=== PATIENT | male | born 1970 | race Caucasian/White ===

== ENCOUNTER 2016-10-05 12:00 | Inpatient (IN) | payer OTHER ==
[~2016-10-05] VITALS: Ht 177.8 cm; Wt 72.1 kg
[~2016-10-05 12:00] MED LIST: ENDOCET 325 MG-1 TAB PO; MELOXICAM7.5 M1; MOTRIN800 MG PO; NIACIN500 M1 PO; OXYCONTIN20 M1; PERCOCET 325 MG1 TA2 PO; TESTOSTERO TOP
--- NOTE | 2016-10-05 12:15 | NUR ---
Informed waiting has been performed.
--- NOTE | 2016-10-05 12:15 | NUR ---
TRIAGE: PT TO C/C SUICIDAL IDEATION AND TOOK "AROUND 30 OXYS" TODAY. STATES PILLS WERE 15 MG TABLETS. TOOK "A LITTLE OVER AN HOUR NOW". PILLS WERE PRESCRIBED TO HIM. DENIES ETOH OR OTHER SUBSTANCE USE/ABUSE. DENIES HI. DENIES ANY PSYCH HX. WHEN ASKED WHY HE WANTED TO COMMIT SUICIDE RESPONDS "I DON'T KNOW, I REALLY DON'T KNOW".
--- NOTE | 2016-10-05 12:20 | ED PSYCHIATRIC COMPLAINT ---
See Addendum History of Present Illness General Chief Complaint: Psychiatric Related Complaint Stated Complaint: "I TOOK 40 OXYS TODAY" X 1HR +SI Source: patient Exam Limitations: no limitations Vital Signs & Intake/Output Vital Signs & Intake/Output Vital Signs Date Time Temp Pulse Resp B/P Pulse O2 O2 Flow FiO2 Ox Delivery Rate 10/06 0519 98.1 88 18 151/83 97 Room Air 10/05 2113 97.8 98 16 170/108 98 Room Air 10/05 1824 100 16 148/92 97 Room Air 10/05 1355 Room Air 10/05 1348 97.8 108 18 145/83 96 Room Air 10/05 1211 96.5 102 20 164/100 97 Room Air ED Intake and Output 10/06 0000 10/05 1200 Intake Total Output Total Balance Patient 181 lb Weight Allergies Coded Allergies: NO KNOWN ALLERGIES (10/05/16) Reconcile Medications Meloxicam 7.5 MG TABLET 1 TAB PO DAILY INFLAMMATION (Reported) Oxycodone Cr (OxyContin) 20 MG TAB.ER.12H 1 TAB PO BID PAIN (Reported) OXYCODONE HCL/ACETAMINOPHEN (Percocet 5-325 MG Tablet) 325 MG/5 MG TAB 1 TAB PO Q4-6 PRN PRN PAIN Testosterone 10 MG (2%) 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 STATES PILLS WERE 15 MG TABLETS. TOOK "A LITTLE OVER AN HOUR NOW". PILLS WERE PRESCRIBED TO HIM. DENIES ETOH OR OTHER SUBSTANCE USE/ABUSE. DENIES HI. DENIES ANY PSYCH HX. WHEN ASKED WHY HE WANTED TO COMMIT SUICIDE RESPONDS "I DON'T KNOW, I REALLY DON'T KNOW". Triage Nurses Notes Reviewed? yes Onset: Abrupt Duration: hour(s): (1) Timing: single episode today Severity: severe Associated Symptoms: anxiety HPI: 45 y/o male who presents 1 hr after taking combination of 20mg long acting and 15 mg short acting oxycodone tabs. Total pills were 30. Patient is chronically on them for chronic back pain. Patient reports he did this as a ? suicide attempt, admits to depression. Denies any other ingestion. She noticed to being depressed but doesn't want to talk about it. He has never done anything like this before. Medications are obtained legally from Dr. Plaza pain management. Denies any alcohol ingestion or illicit drug use. (MARYLOU GONZALES MD) Past History Travel History Traveled to [place] past 21 day No Medical History Any Pertinent Medical History? 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 No (MARYLOU GONZALES MD) Review of Systems Review of Systems Constitutional: Denies: chills, fever. EENTM: Reports: no symptoms. Respiratory: Reports: no symptoms. Cardiovascular: Denies: chest pain. GI: Reports: no symptoms. Genitourinary: Reports: no symptoms. Musculoskeletal: Reports: no symptoms. Skin: Reports: no symptoms. Neurological/Psychological: Reports: anxiety, depressed, emotional problems. Hematologic/Endocrine: Reports: no symptoms. Immunologic/Allergic: Denies: splenectomy. All Other Systems: Reviewed and Negative (MARYLOU GONZALES MD) Physical Exam Physical Exam General Appearance: well developed/nourished, alert, awake, anxious, moderate distress Head: atraumatic Eyes: Bilateral: PERRL, EOMI. Ears, Nose, Throat: normal pharynx, normal ENT inspection, hearing grossly normal Neck: normal inspection, supple Respiratory: normal breath sounds Cardiovascular: regular rate/rhythm Gastrointestinal: soft, non-tender Extremities: normal range of motion Neurological/Psychiatric: no motor/sensory deficits, awake, alert, anxious Appearance/Memory/Insight: disheveled, impaired insight Behavoir/Eye Contact/Speech: avoids eye contact, good eye contact Thoughts/Hallucinations: no apparent hallucination Skin: intact, normal color, warm/dry SAD PERSONS Done? unobtained due to conditi (MARYLOU GONZALES MD) Progress Differential Diagnosis: OPIATE OVERDOSE, BENZO ABUSE, STIMULANT ABUSE, DEPRESSION, ANXIETY, SI Plan of Care: Orders Procedure Date/time Status Regular Diet 10/06 B Active Continuous Observation Monitor 10/06 0400 Active Continuous Observation Monitor 10/06 0000 Active ED CRISIS PSYCH CONSULT 10/05 1324 Active EKG 10/05 1245 Active Continuous Observation Monitor 10/05 1213 Active URINE DRUG SCREEN FOR ER ONLY 10/05 1205 Complete ACETOMINOPHEN 10/05 1205 Complete SALICYLATE 10/05 1205 Complete ETHANOL 10/05 1205 Complete COMPREHENSIVE METABOLIC PANEL 10/05 1205 Complete CBC WITHOUT DIFFERENTIAL 10/05 1205 Complete Laboratory Tests 10/05/16 1520: Urine Opiates Screen 1650.00, Methadone Screen < 40, Barbiturate Screen < 60, Ur Phencyclidine Scrn < 6.00, Amphetamines Screen 341, U Benzodiazepines Scrn < 85, Urine Cocaine Screen < 50, Urine Cannabis Screen < 5.00 10/05/16 1232: Anion Gap 13, Estimated GFR > 60, BUN/Creatinine Ratio 18.0, Glucose 203 H, Calcium 9.9, Total Bilirubin 1.7 H, AST 43, ALT 38, Alkaline Phosphatase 42, Total Protein 7.5, Albumin 4.7, Globulin 2.8, Albumin/Globulin Ratio 1.7, CBC w Diff NO MAN DIFF REQ, RBC 5.61, MCV 91.3, MCH 30.8, RDW 12.9, MPV 8.6, Gran % 67.6, Lymphocytes % 23.9, Monocytes % 5.9, Eosinophils % 2.3, Basophils % 0.3, Absolute Granulocytes 4.4, Absolute Lymphocytes 1.5, Absolute Monocytes 0.4, Absolute Eosinophils 0.2, Absolute Basophils 0, PUBS MCHC 33.8, Salicylates < 1.0, Acetaminophen < 10.0 L, Serum Alcohol < 10.0 CRISIS CONSULT, SITTER, ASPIRIN, TYLENOL LEVEL. EKG, IV FLUIDS. 7 pm per crisis not currently suicidal but will hold overnight for reevaluation on PEC. (JANET RPOCTOR,MARYLOU) Initial ED EKG: sinus tachycardia Rhythm Strip: sinus tachycardia Hand-Off Endorsed To: CHRIS MACEDO MD Endorsed Time: 1913 Pending: consult (CRISIS REEVALUTAION) (MARYLOU GONZALES MD) Hand-Off Endorsed To: KELBY RIVERA MD Endorsed Time: 0700 Pending: consult (CHRIS MACEDO MD) Hand-Off Endorsed To: MIKE FRANK DO Endorsed Time: 0700 Pending: consult (crisis re-eval) (MIGUEL PROCTOR,KELBY) Departure Departure Disposition: STILL A PATIENT Condition: Stable Clinical Impression Primary Impression: Overdose Referrals: HEMA PROCTOR,MALCOLM Gore Departure Forms: Customer Survey General Discharge Information (JANET PROCTOR,MARYLOU) Departure Comments 10/06/16 7 AM Patient signed out to me by Miguel. He is pending reevaluiation by Crisis. (MIKE FRANK DO)
--- NOTE | 2016-10-05 12:25 | NUR ---
PT TO ROOM 7, CALM AND COOPERATIVE. PT REPORTS THAT HE TOOK 30 OXUCODONE PILLS. WHEN ASKED WHY, PT REPLIED "I DON'T KNOW". PT REPORTS BACK PAIN WITH HISTORY OF SCOLIOSIS AND ARTHRITIS. PT STATED "I NEED AN MRI ON MY BACK". PT ALSO STATED THAT HE "GETS HIS PILLS FROM A LEGAL SOURCE".
--- NOTE | 2016-10-05 12:32 | NUR ---
SECUSITY AT BEDSIDE FOR WANDING ANF PT CHANGED INTO BLUE SCRUBS
--- NOTE | 2016-10-05 12:35 | NUR ---
BLOOD DRAWN AND SENT TO LAB BY THIS [facility]. SST/LAV
--- NOTE | 2016-10-05 12:42 | NUR ---
MED STUDENT AT BEDSIDE FOR EVAL
[2016-10-05 12:43] LABS: ABSOLUTE BASOPHIL COUNT 0 /CUMM (0.0-0.2); ABSOLUTE EOSINOPHIL COUNT 0.2 /CUMM (0.0-0.7); ABSOLUTE GRANULOCYTE CT 4.4 /CUMM (1.4-6.5); ABSOLUTE LYMPH COUNT 1.5 /CUMM (1.2-3.4); ABSOLUTE MONOCYTE COUNT 0.4 /CUMM (0.10-0.60); BASOPHIL % 0.3 % (0.0-2.0); EOSINOPHIL % 2.3 % (0-5); GRANULOCYTE % 67.6 % (42.2-75.2); HEMATOCRIT 51.2 % (42-52); MEAN CORPUSCULAR HGB 30.8 PG (27.0-31.0); MEAN CORPUSCULAR HGB CONC 33.8 G/DL (33.0-37.0); MEAN CORPUSCULAR VOLUME 91.3 FL (80.0-94.0); MEAN PLATELET VOLUME 8.6 FL (7.4-10.4); PLATELET COUNT 201 /CUMM (130-400); RBC DISTRIBUTION WIDTH 12.9 % (11.5-14.5); RED BLOOD CELL CT 5.61 /CUMM (4.70-6.10); WHITE BLOOD CELL COUNT 6.5 /CUMM (4.8-10.8)
--- NOTE | 2016-10-05 13:05 | NUR ---
DR GONZALES AND MED STUDENT AT BEDSIDE
--- NOTE | 2016-10-05 13:54 | NUR ---
IV ESTABLISHED IN LEFT A/C, #20, 1 LITER OF NS RUNNING
--- NOTE | 2016-10-05 14:30 | NUR ---
LITER OF NS FINISHED INFUSING. PT REMAINS CALM. PT ADVISED THAT WE STILL NEED TO OBTAIN A URINE SAMPLE FROM HIM.
--- NOTE | 2016-10-05 15:15 | NUR ---
PT AMBULATORY TO RESTROOM WITH STEADY GAIT. PT ABLE TO GIVE URINE SAMPLE AT THIS TIME.
--- NOTE | 2016-10-05 15:23 | NUR ---
URINE TRIO SENT TO LAB
--- NOTE | 2016-10-05 16:34 | ED PSY CRISIS COLLATERAL NOTE ---
See Addendum Collateral Note Collateral Note Family/Inform/Xin Contacts: Crisis spoke by phone with the pts Amber Alexander ([phone]) who stated she is in the process of leaving the pt and was packing items earlier today. The stated she is moving out with their 2 children (ages 11 and 8) during the upcoming week and the pt does not want the separation. Pts reported the pt approached her and stated I have to go to [place], I took a bunch of pills. Mrs. Alexander stated the pt did not tell her what pills or how many. Mrs. Alexander stated her brother was at their apartment and the brother brought the pt to [place]. Mrs. Alexander stated she is unsure of the intent of the pt taking the medication. Mrs. Alexander stated the pt sees a neurologist and has a long hx of ADHD, Anxiety and Depression. Mrs. Alexander stated the pt has not worked much over past year since he was laid off. Mrs. Alexander stated they have no income, she is recovering from Cancer and they are 2 months behind with rent. Mrs. Alexander stated they lost their home 4 years ago due to financial issues. Mrs. Alexander stated this is not the couples first time . Mrs. Alexander stated the pt is not always rational. Three days ago when his car broke down and the wrong part arrived the pt kicked the part around stating I cant do it, I give up, I need to go to the hospital. Mrs. Alexander stated she is unsure if the pt is suicidal. Mrs. Alexander stated that 10 yrs ago the pt claimed he overdosed on antibiotics, she is unsure if actually did took an overdose. Mrs. Alexander is not aware of any past psychiatric hosptializations. Mrs. Alexander stated the pt has 70 bottles of vitamins throughout the house. Mrs. Alexander stated the pt avoids problems and at times has odd behavior. Mrs. Alexander stated that 1 month ago the pt ate 12 ice cream cones in a row at home. The pt will hide food so know one else will eat it. Mrs. Alexander stated despite their financial issues the pt recently smoked 3 packs of cigarettes in half a day and would light a new cigarette without finishing his current cigarette. Mrs. Alexander stated the pt has weird body movements including rigid and jerky motions. Mrs. Alexander stated the pt baseline fidgety and cannot sit still. Mrs. Alexander stated the pt is prescribed Wellbutrin, Valium, Oxycontin and Oxycodone, meloxicam ( is unsure of the correct spelling) and hormone cream she believes may be testerone. Crisis spoke by phone with the pts Amber Alexander ([phone]) who stated she is in the process of leaving the pt and was packing items earlier today. The stated she is moving out with their 2 children (ages 11 and 8) during the upcoming week and the pt does not want the separation. Pts reported the pt approached her and stated I have to go to [place], I took a bunch of pills. Mrs. Alexander stated the pt did not tell her what pills or how many. Mrs. Alexander stated her brother was at their apartment and the brother brought the pt to [place]. Mrs. Alexander stated she is unsure of the intent of the pt taking the medication. Mrs. Alexander stated the pt sees a neurologist and has a long hx of ADHD, Anxiety and Depression. Mrs. Alexander stated the pt has not worked much over past year since he was laid off. Mrs. Alexander stated they have no income, she is recovering from Cancer and they are 2 months behind with rent. Mrs. Alexander stated they lost their home 4 years ago due to financial issues. Mrs. Alexander stated this is not the couples first time . Mrs. Alexander stated the pt is not always rational. Three days ago when his car broke down and the wrong part arrived the pt kicked the part around stating I cant do it, I give up, I need to go to the hospital. Mrs. Alexander stated she is unsure if the pt is suicidal. Mrs. Alexander stated that 10 yrs ago the pt claimed he overdosed on antibiotics, she is unsure if actually did took an overdose. Mrs. Alexander is not aware of any past psychiatric hosptializations. Mrs. Alexander stated the pt has 70 bottles of vitamins throughout the house. Mrs. Alexander stated the pt avoids problems and at times has odd behavior. Mrs. Alexander stated that 1 month ago the pt ate 12 ice cream cones in a row at home. The pt will hide food so know one else will eat it. Mrs. Alexander stated despite their financial issues the pt recently smoked 3 packs of cigarettes in half a day and would light a new cigarette without finishing his current cigarette. Mrs. Alexander stated the pt has weird body movements including rigid and jerky motions. Mrs. Alexander stated the pt baseline fidgety and cannot sit still. Mrs. Alexander stated the pt is prescribed Wellbutrin, Valium, Oxycontin and Oxycodone, meloxicam ( is unsure of the correct spelling) and hormone cream she believes may be testerone. Mrs. Alexander stated she believes the pt will be able to stay with his mother once they lose their apartment.
--- NOTE | 2016-10-05 17:03 | NUR ---
CRISIS SW AT BEDSIDE FOR EVAL
--- NOTE | 2016-10-05 17:43 | NUR ---
Crisis consultation completed. Evaluation reviewed with on-call psychiatrist Dr. Castorena and with attending physician Dr. Wiley. Patient will be held over-night for further observation.
--- NOTE | 2016-10-05 17:45 | ED PSYCH CRISIS CONSULTATION ---
See Addendum Crisis Consult Basic Assessment Date of Consult: 10/05/16 Responsible Person/Accompanied By: Brought in by brother in law Insurance Authorization: Insurance #1: Insurance name: [employer] Phone number: Policy number: [id number] Group number: [id number] Authorization number: ED Provider: Patient's ED Provider: JANET PROCTOR,MARYLOU Primary Care Physician: Patient's PCP: ANTONIO PROCTOR,TOMÁS Nelson PCP's Current Psychiatrist: No current psychiatrist - pain medications prescribed by Omar Plaza MD Chief Complaint: Psychiatric Related Complaint Patient's Quote: "I had a sharp pain...looking back I dont think it was 30 pills I took" Present Illness: Patient is a 45 year old male who was brought in to [facility] emergency department by his brother in-law due to concern he may have consumed an overdose of his prescription medication. Patient is and has two children ages 8 and 11. Per attending physician report, patient stated he took 30 pills in an unspecified combination of 20mg long acting / 15 mg short acting oxycodone tablets which he is prescribed by Dr. Omar Plaza MD . Collateral information obtained from patients *see report written by Omar Rust. reports she is from patient and that they will be moving out of their home shortly due to nonpayment of rent. There are financial stressors per report and pt. 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 has had some odd behaviors such as binge eating, compulsive smoking of cigarettes, and abnormal movements. Per , pt. has historical diagnoses of ADHD, anxiety, and depression. Pt.s reports pt. may have overdosed on antibiotics over 10 years ago but is unclear. Patient presents anxious / dysphoric with flat affect. Some dystonia observed with abnormal movements. Patient was first laying ridigly in a hyper- extended position and then sitting up w/ tensed muscles. Patient denies suicidal ideation currently and denies intent or plan. Patient stated "I don't want to commit suicide." Patient denies any homicidal ideation or intent ot harm others. Patient denies audiovisual hallucinations and there is no indication of thought disorder. Patient is denying his consumption of pills was an attempt to commit suicide. This account underwriter informed patient his toxicology screen did not return a significant result for opioid level. Patient states "looking back, I don't think it was 30 pills....I think it was in the ~20 range." Patient asserts he took the medication because he was experiencing a "sharp pain" in his side. Patient speech was at times pressured with confusing statements such as "my spine is like a microphone...it's a spook....it's like spiderwebs through your body." Patient discussed several concerns regarding his health and requested further medical evaluation of his pain management as he is concerned about how he is metabolizing his medication. Patient also requested assistance of a "state worker" - when asked to elaborate, he indicated he would like assistance with finding housing and with financial benefits as he will soon need to move out his home and is unemployed. Patient does not have Patient did not reply to scaling questions ( ex. - how high is depression on a scale of 1-10 ) but did report significant levels of anxiety, depression, and perceived pain. Patient's Address: [address] [place] [address] Other Phone Number: Who Do You Live With? 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 #60 (Reported) Entered as Reported by SABINE PARIKH on 08/09/141805 Last Taken: At an unknown date and time Scheduled PRN Medications OXYCODONE HCL/ACETAMINOPHEN (Percocet 5-325 MG Tablet) 325 MG/5 MG TAB 1 TAB PO Q4-6 PRN PRN PAIN #15 TAB Prescribed by OMAR EID PA-C on 08/09/14 Last Taken: 10/05/16 Laboratory Results: Laboratory Tests 10/05/16 1520: Urine Opiates Screen 1650.00, Methadone Screen < 40, Barbiturate Screen < 60, Ur Phencyclidine Scrn < 6.00, Amphetamines Screen 341, U Benzodiazepines Scrn < 85, Urine Cocaine Screen < 50, Urine Cannabis Screen < 5.00 10/05/16 1232: Anion Gap 13, Estimated GFR > 60, BUN/Creatinine Ratio 18.0, Glucose 203 H, Calcium 9.9, Total Bilirubin 1.7 H, AST 43, ALT 38, Alkaline Phosphatase 42, Total Protein 7.5, Albumin 4.7, Globulin 2.8, Albumin/Globulin Ratio 1.7, CBC w Diff NO MAN DIFF REQ, RBC 5.61, MCV 91.3, MCH 30.8, RDW 12.9, MPV 8.6, Gran % 67.6, Lymphocytes % 23.9, Monocytes % 5.9, Eosinophils % 2.3, Basophils % 0.3, Absolute Granulocytes 4.4, Absolute Lymphocytes 1.5, Absolute Monocytes 0.4, Absolute Eosinophils 0.2, Absolute Basophils 0, PUBS MCHC 33.8, Salicylates < 1.0, Acetaminophen < 10.0 L, Serum Alcohol < 10.0 Past History Past Medical History Neurological: NONE EENT: NONE Cardiovascular: HOLE IN HEART SLIGHT LEAK IN VALVE Respiratory: NONE Gastrointestinal: NONE Hepatic: NONE Renal: NONE Musculoskeletal: SCOLIOSIS RA Psychiatric: NONE Endocrine: NONE Blood Disorders: NONE Cancer(s): NONE PASSENGER RELATIONS REPRESENTATIVE/Reproductive: NONE Past Surgical History Surgical History: non-contributory Psychosocial History Strengths/Capabilities: Patient is knowledgable about pain management and is engaged in his own healthcare. Patient is motivated to return to work. 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 Physical Limitations (Interventions): Chronic back issues Psychiatric Treatment History Psych Treatment Psychiatric Treatment No Inpatient Treatment No (Patient denies) Outpatient Treatment Yes (Psychotropic rx by PCP) Location of Treatment - Reason for Treatment - Dates of Treatment - Response to Treatment - Diagnosis by History: ADHD, Anxiety, Depression Substance Use/Abuse History Drug Use/Abuse Substances Used/Abused No (Patient denies ) First Use - Last Used - How much used/taken - How often - For how long - Route of use - Substance Abuse Treatment Substance Abuse Treatment Past Substance Abuse [place] No (Patient denies) Inpatient Treatment No Outpatient Treatment No Location of Treatment - Reason for Treatment - Dates of Treatment - Response to Treatment - Comments: Patient denies past or current substance use asserting his commercial drivers' license ([employer]) has strict drug testing protocols. Current Mental Status Mental Status Orientation: Person, Place, Situation Affect: Anxious, Flat Speech: Pressured Neuro-vegetative: Anhedonia, Appetite Increased, Energy Increased, Sleep Disturbance Appearance Appearance- Dress/Hygiene: Patient is dressed in hospital attire with no remarkable features. Behaviors Thought Process: WNL Thought Content: WNL Memory: WNL Insight: Poor SI/HI Risk Assessment Past Suicidal Ideation/Attempts Yes (Past SI/possible attempt) Current Suicidal Ideation/Att No (Patient denies) Past Homicidal Ideation/Att: No Current Homicidal Ideation/Attempts No Degree of Intent: None Gravely Disabled: Lack of Insight Risk Factors: chronic/serious med cond., high anxiety/distress, history of suicide atmpts, male, limited support Lethality Ratin PTSD Checklist PTSD Done? patient declined ED Management Sitter: Yes Restraints: No DSM5/PS Stressors/Medical Prob Diagnosis' (DSM 5, Stressors, Medical): F32.9 Unspecified Depressive Disorder F41.9 Unspecified Anxiety Disorder Rule - out for F90.2 Attention-deficit/hyperactivity disorder, Combined presentation F11.20 Opioid Use Disorder Current GAF: 35 Comments: Chronic pain Financial stressors Relationship distress / imminent separation from spouse Concern of housing Unemployed Departure Disposition Psych Medical Clearance Date: 10/05/16 Medically Cleared at: 1700 Time Started: 1700 Time Ended: 1800 Psychiatrist Consulted: Srinivasan Castorena MD, PhD Date Disposition Established: 10/05/16 Time Disposition Established: 1800 Plan for Disposition - Modality: Hold over-night for reassessment Rationale for Disposition: Crisis consulation reviewed with on-call psychiatrist Dr. Castorena. Patient to be held over-night for further observation and reassessment in the morning. Patient 's toxicology screening is inconsistent with self-report of overdosing on prescription medication. It is unclear if patient attempted suicide as pt. reported in triage and then contradicted during crisis evaluation. Pt's mental status is not stable as he presents anxious with abnormal movements/speech. If pt. is calm / stable in the morning and it is firmly established there was no intent to overdose, pt. may be appropriate for discharge with a referral to an outpatient psychiatry clinic. Referrals ANTONIO PROCTOR,TOMÁS Nelson (PCP/Family)
--- NOTE | 2016-10-05 19:10 | NUR ---
PT MOVED TO ROOM 15, HE WILL BE HELDOVER UNTIL MORNING. PT AMBULATORY WITH STEADY GAIT. PT CALM AND COOPERATIVE. SITTER AT DOOR FOR SAFETY.
--- NOTE | 2016-10-05 21:12 | NUR ---
PT AMBULATORY FROM ROOM 15, STAING HE "NEEDED TO STRETCH HIS LEGS". PT WAS ADVISED THAT HE NEEDED TO STAY WITHIN BH AREA. LAY BROTHER NEARBY. TWO SITTERS PRESENT FOR SAFETY. PT CALM AND COOPERATIVE WITH REDIRECTION AND VITALS.
--- NOTE | 2016-10-05 23:39 | NUR ---
REPORT RECIEVED BY ANNA RODRIGUEZ IN PLACE FOR SAFETY, RR NOTED. WILL CTM.
--- NOTE | 2016-10-06 02:39 | NUR ---
PT SLEEPING AT THIS TIME. REGULAR RESPIRATIONS NOTED, NAD. SITTER IN PLACE FOR SAFETY, WILL CTM.
--- NOTE | 2016-10-06 04:29 | NUR ---
PT CONTINUES TO SLEEP AT THIS TIME, NAD, SITTER IN PLACE
--- NOTE | 2016-10-06 06:39 | NUR ---
PT REMAINS ASLEEP AT THIS TIME, RR NOTED. NAD. SITTER REMAINS IN PLACE FOR SAFETY.
--- NOTE | 2016-10-06 07:30 | NUR ---
ASSUMED CARE, AWAKE, EATING BREAKFAST. SITTER IN ATTENDANCE.
--- NOTE | 2016-10-06 11:02 | NUR ---
PT WANTS TO LEAVE, STATES, "THERE IS NOTHING WRONG WITH ME".
--- NOTE | 2016-10-06 11:44 | IP CRISIS DIAG ASSESS PSYCH ---
See Addendum Diagnostic Assessment Basic Assessment Insurance Authorization: Insurance #1: Insurance name: [employer] Phone number: [phone] Health Link Policy number: [id number] Group number: [id number] Authorization number: pending Clinical left on Amber[employer] voice mail [phone]. Awaiting call back to finalize Auth. Primary Care Physician: Patient's PCP: ANTONIO PROCTOR,TOMÁS Nelson PCP's Patient's Quote: "I had a sharp pain...looking back I dont think it was 30 pills I took" Present Illness: Patient is a 45 year old male who was brought in to [facility] emergency department by his brother in-law due to concern he may have consumed an overdose of his prescription medication. Patient is and has two children ages 8 and 11. Per attending physician report, patient stated he took 30 pills in an unspecified combination of 20mg long acting / 15 mg short acting oxycodone tablets which he is prescribed by Dr. Omar Plaza MD . Collateral information obtained from patients *see report written by Omar Rust. reports she is from patient and that they will be moving out of their home shortly due to nonpayment of rent. There are financial stressors per report and pt. 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 has had some odd behaviors such as binge eating, compulsive smoking of cigarettes, and abnormal movements. Per , pt. has historical diagnoses of ADHD, anxiety, and depression. Pt.s reports pt. may have overdosed on antibiotics over 10 years ago but is unclear. Patient presents anxious / dysphoric with flat affect. Some dystonia observed with abnormal movements. Patient was first laying ridigly in a hyper- extended position and then sitting up w/ tensed muscles. Patient denies suicidal ideation currently and denies intent or plan. Patient stated "I don't want to commit suicide." Patient denies any homicidal ideation or intent ot harm others. Patient denies audiovisual hallucinations and there is no indication of thought disorder. Patient is denying his consumption of pills was an attempt to commit suicide. This short story writer informed patient his toxicology screen did not return a significant result for opioid level. Patient states "looking back, I don't think it was 30 pills....I think it was in the ~20 range." Patient asserts he took the medication because he was experiencing a "sharp pain" in his side. Patient speech was at times pressured with confusing statements such as "my spine is like a microphone...it's a spook....it's like spiderwebs through your body." Patient discussed several concerns regarding his health and requested further medical evaluation of his pain management as he is concerned about how he is metabolizing his medication. Patient also requested assistance of a "state worker" - when asked to elaborate, he indicated he would like assistance with finding housing and with financial benefits as he will soon need to move out his home and is unemployed. Patient does not have Patient did not reply to scaling questions ( ex. - how high is depression on a scale of 1-10 ) but did report significant levels of anxiety, depression, and perceived pain. Crisis consulation reviewed with on-call psychiatrist Dr. Castorena. Patient to be held over-night for further observation and reassessment in the morning. Patient 's toxicology screening is inconsistent with self-report of overdosing on prescription medication. It is unclear if patient attempted suicide as pt. reported in triage and then contradicted during crisis evaluation. Pt's mental status is not stable as he presents anxious with abnormal movements/speech. If pt. is calm / stable in the morning and it is firmly established there was no intent to overdose, pt. may be appropriate for discharge with a referral to an outpatient psychiatry clinic. [employer]> 10/05/16 Crisis spoke by phone with the pts Amber Alexander ([phone]) who stated she is in the process of leaving the pt and was packing items earlier today. The stated she is moving out with their 2 children (ages 11 and 8) during the upcoming week and the pt does not want the separation. Pts reported the pt approached her and stated I have to go to [place], I took a bunch of pills. Mrs. Alexander stated the pt did not tell her what pills or how many. Mrs. Alexander stated her brother was at their apartment and the brother brought the pt to [place]. Mrs. Alexander stated she is unsure of the intent of the pt taking the medication. Mrs. Alexander stated the pt sees a neurologist and has a long hx of ADHD, Anxiety and Depression. Mrs. Alexander stated the pt has not worked much over past year since he was laid off. Mrs. Alexander stated they have no income, she is recovering from Cancer and they are 2 months behind with rent. Mrs. Alexander stated they lost their home 4 years ago due to financial issues. Mrs. Alexander stated this is not the couples first time . Mrs. Alexander stated the pt is not always rational. Three days ago when his car broke down and the wrong part arrived the pt kicked the part around stating I cant do it, I give up, I need to go to the hospital. Mrs. Alexander stated she is unsure if the pt is suicidal. Mrs. Alexander stated that 10 yrs ago the pt claimed he overdosed on antibiotics, she is unsure if actually did took an overdose. Mrs. Alexander is not aware of any past psychiatric hosptializations. Mrs. Alexander stated the pt has 70 bottles of vitamins throughout the house. Mrs. Alexander stated the pt avoids problems and at times has odd behavior. Mrs. Alexander stated that 1 month ago the pt ate 12 ice cream cones in a row at home. The pt will hide food so know one else will eat it. Mrs. Alexander stated despite their financial issues the pt recently smoked 3 packs of cigarettes in half a day and would light a new cigarette without finishing his current cigarette. Mrs. Alexander stated the pt has weird body movements including rigid and jerky motions. Mrs. Alexander stated the pt baseline fidgety and cannot sit still. Mrs. Alexander stated the pt is prescribed Wellbutrin, Valium, Oxycontin and Oxycodone, meloxicam ( is unsure of the correct spelling) and hormone cream she believes may be testerone. Crisis spoke by phone with the pts Amber Alexander ([phone]) who stated she is in the process of leaving the pt and was packing items earlier today. The stated she is moving out with their 2 children (ages 11 and 8) during the upcoming week and the pt does not want the separation. Pts reported the pt approached her and stated I have to go to [place], I took a bunch of pills. Mrs. Alexander stated the pt did not tell her what pills or how many. Mrs. Alexander stated her brother was at their apartment and the brother brought the pt to [place]. Mrs. Alexander stated she is unsure of the intent of the pt taking the medication. Mrs. Alexander stated the pt sees a neurologist and has a long hx of ADHD, Anxiety and Depression. Mrs. Alexander stated the pt has not worked much over past year since he was laid off. Mrs. Alexander stated they have no income, she is recovering from Cancer and they are 2 months behind with rent. Mrs. Alexander stated they lost their home 4 years ago due to financial issues. Mrs. Alexander stated this is not the couples first time . Mrs. Alexander stated the pt is not always rational. Three days ago when his car broke down and the wrong part arrived the pt kicked the part around stating I cant do it, I give up, I need to go to the hospital. Mrs. Alexander stated she is unsure if the pt is suicidal. Mrs. Alexander stated that 10 yrs ago the pt claimed he overdosed on antibiotics, she is unsure if actually did took an overdose. Mrs. Alexander is not aware of any past psychiatric hosptializations. Mrs. Alexander stated the pt has 70 bottles of vitamins throughout the house. Mrs. Alexander stated the pt avoids problems and at times has odd behavior. Mrs. Alexander stated that 1 month ago the pt ate 12 ice cream cones in a row at home. The pt will hide food so know one else will eat it. Mrs. Alexander stated despite their financial issues the pt recently smoked 3 packs of cigarettes in half a day and would light a new cigarette without finishing his current cigarette. Mrs. Alexander stated the pt has weird body movements including rigid and jerky motions. Mrs. Alexander stated the pt baseline fidgety and cannot sit still. Mrs. Alexander stated the pt is prescribed Wellbutrin, Valium, Oxycontin and Oxycodone, meloxicam ( is unsure of the correct spelling) and hormone cream she believes may be testerone. Mrs. Alexander stated she believes the pt will be able to stay with his mother once they lose their apartment. [facility] [employer]LL[employer]/HUMINT SPECIALIST> 10/05/16 Crisis re-evaluated pt this morning. Pt continues to deny SI and requests an out pt referral and discharge. Case was reviewed with Dr. Swain and he will make recommendations later this morning. SILVIA KAYE [facility]> 10/06/16 Pt's story has changed several times. it is not clear if he made a suicide attempt or not. Pt has no protective factors and does not have a safe dispo plan. Dr Tony recommends pt be admitted to [facility]. Pt refuses to be admitted voluntarily, so pt has been placed on a PEC. Pt refused to participate in admission process, so diagnostic eval was limited and many questions were unable to be answered. SILVIA KAYE [facility]> 10/06/16 Patient's Address: [address] [place] [address] Other Phone Number: Who Do You Live With? Family Primary Language? Gabonese Family/Informants Interviewed: - Amber Alexander (see collateral note) Allergies - Coded Allergies: NO KNOWN ALLERGIES (10/05/16) Current Medications - Scheduled Medications Meloxicam 7.5 MG TABLET 1 TAB PO DAILY INFLAMMATION #30 (Reported) Entered as Reported by SABINE PARIKH on 08/09/141804 Last Taken: At an unknown date and time Oxycodone Cr (OxyContin) 20 MG TAB.ER.12H 1 TAB PO BID PAIN #60 (Reported) Entered as Reported by SABINE PARIKH on 08/09/141804 Last Taken: 10/05/16 Testosterone 10 MG (2%) GEL.IN FILE OPERATOR 1 DEDRICK TOP BID HRT #60 (Reported) Entered as Reported by SABINE PARIKH on 08/09/141805 Last Taken: At an unknown date and time Scheduled PRN Medications OXYCODONE HCL/ACETAMINOPHEN (Percocet 5-325 MG Tablet) 325 MG/5 MG TAB 1 TAB PO Q4-6 PRN PRN PAIN #15 TAB Prescribed by OMAR EID PA-C on 08/09/14 Last Taken: 10/05/16 Past History Past Medical History Medical History: SCOLIOSIS RHEUMATOID ARTHRITIS Past Surgical History Surgical History hernia Repair, L INGUINAL HERNIA REPAIR Abuse/Trauma History Trauma History/Current Trauma: unknown Legal History Current Legal Status: unknown Psychosocial History Strengths/Capabilities: Patient is knowledgable about pain management and is engaged in his own healthcare. Patient is motivated to return to work. 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 Physical Limitations (Interventions): Chronic back issues Psychiatric Treatment History Psych Treatment Psychiatric Treatment No Inpatient Treatment No (Patient denies) Outpatient Treatment Yes (Psychotropic rx by PCP) Location of Treatment - Reason for Treatment - Dates of Treatment - Response to Treatment - Diagnosis by History: ADHD, Anxiety, Depression Risk Factors: chronic/serious med cond., high anxiety/distress, history of suicide atmpts, male, limited support Substance Use/Abuse History Drug Use/Abuse minimum 12mo Hx Substances Used/Abused No (Patient denies ) First Use - Last Used - How much used/taken - How often - For how long - Route of use - Substance Abuse Treatment Substance Abuse Treatment Past Substance Abuse TX No (Patient denies) Inpatient Treatment No Outpatient Treatment No Location of Treatment - Reason for Treatment - Dates of Treatment - Response to Treatment - Current Mental Status Mental Status Orientation: Person, Place, Situation Affect: Anxious, Flat Speech: Pressured Neuro-vegetative: Anhedonia, Appetite Increased, Energy Increased, Sleep Disturbance Appearance Appearance- Dress/Hygiene: Patient is dressed in hospital attire with no remarkable features. Behaviors Thought Process: WNL Thought Content: WNL Memory: WNL Insight: Poor SI/HI Risk Assessment - Minimum 6mo History- Past Suicidal Ideation/Attempts Yes (Past SI/possible attempt) Current Suicidal Ideation/Att No (Patient denies) Past Homicidal Ideation/Att: No Current Homicidal Ideation/Attempts No Degree of Intent: None Gravely Disabled: Lack of Insight Risk Factors: chronic/serious med cond., high anxiety/distress, history of suicide atmpts, male, limited support Lethality Ratin Needs/Init TX Plan/Goals: safety and stabilization of sx, individual group and family therapy, med eval AUDIT-C Questionnaire: AUDIT-C Questionnaire: Response Value ETOH use in the past year Never 0 # drinks typical/day Doesn't Drink 0 6 or > drinks per occasion Never 0 Total 0 DSM5/PS Stressors/Medical Prob Diagnosis' (DSM 5, Stressors, Medical): F32.9 Unspecified Depressive Disorder F41.9 Unspecified Anxiety Disorder Rule - out for F90.2 Attention-deficit/hyperactivity disorder, Combined presentation F11.20 Opioid Use Disorder Current GAF: 35 Comments: Chronic pain Financial stressors Relationship distress / imminent separation from spouse Concern of housing Unemployed
--- NOTE | 2016-10-06 11:53 | NUR ---
PT TO BE ADMITTED TO [facility].
--- NOTE | 2016-10-06 13:35 | ED PSY CRISIS COLLATERAL NOTE ---
Collateral Note Collateral Note Family/Inform/Xin Contacts: Pt's Doctor Dr. Omar Plaza who prescribes his pain meds was called and a message was left informing of the nature of why pt came to the ED reporting that he overdosed on his pain in a suicide attempt and that he is being admitted for inpt psych tx.
--- NOTE | 2016-10-06 13:53 | NUR ---
REPORT TO ARAVIND FISCHER. (ED RN)
[2016-10-06] MEDS ORDERED: OXYCODONE HCL15 M1 PO (14:41)
[2016-10-06] MEDS ORDERED: BUPROPION HCL100 M2 PO (14:43)
--- NOTE | 2016-10-06 14:45 | NUR ---
Admission Assessment Patient admitted on a PEC. Patient took an OD yesterday- states he was not suicidal but wanted to "make a statment to his who is leaving for [place] today with his children." Patient presents as anxious, mildly irritable, frequently questioning if he can leave tomorrow. Patient reports mood as sad, irritable, depressed. Patient was on Wellburtrin and med compliant prior to admission. Unit rules explained.
[2016-10-06 15:48] VITALS: BP 143/86
[2016-10-06 19:49] VITALS: BP 147/86
--- NOTE | 2016-10-06 21:19 | NUR ---
PT IS CALM, COOPERATIVE WITH STAFF AND PEERS, AND COMPLIANT WITH UNIT RULES. PT IS SLIGHTLY ISOLATIVE AND WITHDRAWN, APPEARING IN [place]IEU AT TIMES, AND WHEN THIS OCCURS PT INTERACTS WELL WITH PEERS. PT HAS A PROPENSITY TO SPEND LONG PERIODS IN PT ROOM. MOOD IS STABLE, AFFECT APPEARS FULL RANGE, COMMUNICATION IS ORGANIZED AND NORMAL IN ALL ASPECTS. PT DENIES SI AT THIS TIME.
[2016-10-07 07:36] VITALS: BP 140/86
--- NOTE | 2016-10-07 08:38 | SOCIAL WORKER PROG NOTE PSYCH ---
Social Work Progress Note Progress Note Social work met with pt today and explained to pt that this social worker health services won't be his regular social worker health services as she is not here today due to the snow. Pt presents as anxious and fidgety with a nervous smile. He is engaging and pleasant. He denies any active suicidal ideation and expresses his eagerness to discharge. Pt reports that he he missed a job interview yesterday due to being admitted "against my will". 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 Pt asked about the process of applying for disability. This clinician told pt that he may ask his social worker health services about that when she returns, since this social worker health services does not usually work on CPS, it is unclear if that is an option.
--- NOTE | 2016-10-07 09:00 | SOCIAL WORKER SOCIAL HX PSYCH ---
Social History Basic Assessment Insurance Authorization: Insurance #1: Insurance name: [employer] Phone number: Policy number: [id number] Group number: [id number] Authorization number: Curr Source of Income/Entitlements: unemployment Primary Care Physician: Patient's PCP: TOMÁS ALVAREZ MD PCP's Present Problem: Patient is a 45 year old male who was brought in to [facility] emergency department by his brother in-law due to concern he may have consumed an overdose of his prescription medication. Patient is and has two children ages 8 and 11. Per attending physician report, patient stated he took 30 pills in an unspecified combination of 20mg long acting / 15 mg short acting oxycodone tablets which he is prescribed by Dr. Omar Alvarez MD . Collateral information obtained from patients *see report written by Omar Rust. reports she is from patient and that they will be moving out of their home shortly due to nonpayment of rent. There are financial stressors per report and pt. 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 has had some odd behaviors such as binge eating, compulsive smoking of cigarettes, and abnormal movements. Per , pt. has historical diagnoses of ADHD, anxiety, and depression. Pt.s reports pt. may have overdosed on antibiotics over 10 years ago but is unclear. Patient presents anxious / dysphoric with flat affect. Some dystonia observed with abnormal movements. Patient was first laying ridigly in a hyper- extended position and then sitting up w/ tensed muscles. Patient denies suicidal ideation currently and denies intent or plan. Patient stated "I don't want to commit suicide." Patient denies any homicidal ideation or intent ot harm others. Patient denies audiovisual hallucinations and there is no indication of thought disorder. Patient is denying his consumption of pills was an attempt to commit suicide. This ad writer informed patient his toxicology screen did not return a significant result for opioid level. Patient states "looking back, I don't think it was 30 pills....I think it was in the ~20 range." Patient asserts he took the medication because he was experiencing a "sharp pain" in his side. Patient speech was at times pressured with confusing statements such as "my spine is like a microphone...it's a spook....it's like spiderwebs through your body." Patient discussed several concerns regarding his health and requested further medical evaluation of his pain management as he is concerned about how he is metabolizing his medication. Patient also requested assistance of a "state worker" - when asked to elaborate, he indicated he would like assistance with finding housing and with financial benefits as he will soon need to move out his home and is unemployed. Patient does not have Patient did not reply to scaling questions ( ex. - how high is depression on a scale of 1-10 ) but did report significant levels of anxiety, depression, and perceived pain. Crisis consulation reviewed with on-call psychiatrist Dr. Castorena. Patient to be held over-night for further observation and reassessment in the morning. Patient 's toxicology screening is inconsistent with self-report of overdosing on prescription medication. It is unclear if patient attempted suicide as pt. reported in triage and then contradicted during crisis evaluation. Pt's mental status is not stable as he presents anxious with abnormal movements/speech. If pt. is calm / stable in the morning and it is firmly established there was no intent to overdose, pt. may be appropriate for discharge with a referral to an outpatient psychiatry clinic. AP[facility]INAR MALINW> 10/05/16 Crisis spoke by phone with the pts Amber Alexander ([phone]) who stated she is in the process of leaving the pt and was packing items earlier today. The stated she is moving out with their 2 children (ages 11 and 8) during the upcoming week and the pt does not want the separation. Pts reported the pt approached her and stated I have to go to [place], I took a bunch of pills. Mrs. Alexander stated the pt did not tell her what pills or how many. Mrs. Alexander stated her brother was at their apartment and the brother brought the pt to [place]. Mrs. Alexander stated she is unsure of the intent of the pt taking the medication. Mrs. Alexander stated the pt sees a neurologist and has a long hx of ADHD, Anxiety and Depression. Mrs. Alexander stated the pt has not worked much over past year since he was laid off. Mrs. Alexander stated they have no income, she is recovering from Cancer and they are 2 months behind with rent. Mrs. Alexander stated they lost their home 4 years ago due to financial issues. Mrs. Alexander stated this is not the couples first time . Mrs. Alexander stated the pt is not always rational. Three days ago when his car broke down and the wrong part arrived the pt kicked the part around stating I cant do it, I give up, I need to go to the hospital. Mrs. Alexander stated she is unsure if the pt is suicidal. Mrs. Alexander stated that 10 yrs ago the pt claimed he overdosed on antibiotics, she is unsure if actually did took an overdose. Mrs. Alexander is not aware of any past psychiatric hosptializations. Mrs. Alexander stated the pt has 70 bottles of vitamins throughout the house. Mrs. Alexander stated the pt avoids problems and at times has odd behavior. Mrs. Alexander stated that 1 month ago the pt ate 12 ice cream cones in a row at home. The pt will hide food so know one else will eat it. Mrs. Alexander stated despite their financial issues the pt recently smoked 3 packs of cigarettes in half a day and would light a new cigarette without finishing his current cigarette. Mrs. Alexander stated the pt has weird body movements including rigid and jerky motions. Mrs. Alexander stated the pt baseline fidgety and cannot sit still. Mrs. Alexander stated the pt is prescribed Wellbutrin, Valium, Oxycontin and Oxycodone, meloxicam ( is unsure of the correct spelling) and hormone cream she believes may be testerone. Crisis spoke by phone with the pts Amber Alexander ([phone]) who stated she is in the process of leaving the pt and was packing items earlier today. The stated she is moving out with their 2 children (ages 11 and 8) during the upcoming week and the pt does not want the separation. Pts reported the pt approached her and stated I have to go to [place], I took a bunch of pills. Mrs. Alexander stated the pt did not tell her what pills or how many. Mrs. Alexander stated her brother was at their apartment and the brother brought the pt to [place]. Mrs. Alexander stated she is unsure of the intent of the pt taking the medication. Mrs. Alexander stated the pt sees a neurologist and has a long hx of ADHD, Anxiety and Depression. Mrs. Alexander stated the pt has not worked much over past year since he was laid off. Mrs. Alexander stated they have no income, she is recovering from Cancer and they are 2 months behind with rent. Mrs. Alexander stated they lost their home 4 years ago due to financial issues. Mrs. Alexander stated this is not the couples first time . Mrs. Alexander stated the pt is not always rational. Three days ago when his car broke down and the wrong part arrived the pt kicked the part around stating I cant do it, I give up, I need to go to the hospital. Mrs. Alexander stated she is unsure if the pt is suicidal. Mrs. Alexander stated that 10 yrs ago the pt claimed he overdosed on antibiotics, she is unsure if actually did took an overdose. Mrs. Alexander is not aware of any past psychiatric hosptializations. Mrs. Aelxander stated the pt has 70 bottles of vitamins throughout the house. Mrs. Alexander stated the pt avoids problems and at times has odd behavior. Mrs. Alexander stated that 1 month ago the pt ate 12 ice cream cones in a row at home. The pt will hide food so know one else will eat it. Mrs. Alexander stated despite their financial issues the pt recently smoked 3 packs of cigarettes in half a day and would light a new cigarette without finishing his current cigarette. Mrs. Alexander stated the pt has weird body movements including rigid and jerky motions. Mrs. Alexander stated the pt baseline fidgety and cannot sit still. Mrs. Alexander stated the pt is prescribed Wellbutrin, Valium, Oxycontin and Oxycodone, meloxicam ( is unsure of the correct spelling) and hormone cream she believes may be testerone. Mrs. Alexander stated she believes the pt will be able to stay with his mother once they lose their apartment. [facility]> 10/05/16 Crisis re-evaluated pt this morning. Pt continues to deny SI and requests an out pt referral and discharge. Case was reviewed with Dr. Swain and he will make recommendations later this morning. SIL[facility]IA K[facility]> 10/06/16 Pt's story has changed several times. it is not clear if he made a suicide attempt or not. Pt has no protective factors and does not have a safe dispo plan. Dr Tony recommends pt be admitted to [facility]. Pt refuses to be admitted voluntarily, so pt has been placed on a PEC. Pt refused to participate in admission process, so diagnostic eval was limited and many questions were unable to be answered. [facility]IL[facility]IA [facility]> 10/06/16 Primary Language? [place] Language(s) Spoken At Home: [place] Living Situation Rents or Owns Home? rents Other Living Arrangement: lives with and 2 children ages 8 and 11 Feel Safe Where You Are Living Yes Feel Safe in Relationships? Yes Allergies - Coded Allergies: NO KNOWN ALLERGIES (10/05/16) Current Medications - Scheduled Medications Bupropion HCl 100 MG TABLET 100 MG PO DAILY DEPRESSION (Reported) Entered as Reported by ADA HUDSON on 10/06/16 1443 Meloxicam 7.5 MG TABLET 1 TAB PO DAILY INFLAMMATION #30 (Reported) Entered as Reported by SABINE PARIKH on 08/09/141804 Last Taken: 2 tabs on 10/05/16 1000 Oxycodone Cr (OxyContin) 20 MG TAB.ER.12H 1 TAB PO BID PAIN #60 (Reported) Entered as Reported by SABINE PARIKH on 08/09/141804 Last Taken: 20mg on 10/06/16 1100 Oxycodone HCl 15 MG TABLET 1 TAB PO TIDPRN pain (Reported) Entered as Reported by ADA HUDSON on 10/06/16 1441 Testosterone 10 MG (2%) LIAM.CITY ASSESSOR 1 DEDRICK TOP BID HRT #60 (Reported) Entered as Reported by SABINE PARIKH on 08/09/141805 Last Taken: 10/05/16 Scheduled PRN Medications OXYCODONE HCL/ACETAMINOPHEN (Percocet 5-325 MG Tablet) 325 MG/5 MG TAB 1 TAB PO Q4-6 PRN PRN PAIN #15 TAB Prescribed by OMAR EID PA-C on 08/09/14 Last Taken: Unknown Dose on 10/05/16 Past History Past Medical History Neurological: NONE EENT: NONE 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 Pt reports that he enjoyed his childhood as he and his friends would leave on their bikes early in the morning and return in the night. DCF Involvement? No Mother's Age (Current/): 84 Relationship w/Mother: "ok" Relationship w/Father: Father at age 14 due to heart issues. Pt says that overall they had a good relationship, but toward the end his father was "cranky" due to his sickness. Any Sibling(s)? Yes Sibling's Gender(s)/Age(s): male Sibling 1:, male Sibling 2: Relationship w/Sibling(s): Talk once in awhile Relationship w/Friends: I don't really get close to people Abuse/Trauma History Trauma History/Current Trauma: Denies Legal History Current Legal Status: none Pending Court Dates: denies Have you ever been arrested No Hx of Juvenile Legal Charges? No Hx of Adult Legal Charges? 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 "I had a bed day" Physical Limitations (Interventions): Chronic back issues Last Physical: October 2015 History of Seizures? No History of Blackouts? No ADL Limitations: Back pain [place]/Social/Peer Relations pt denies havign any close friends Meaningful Activities: working on cars and fixing things Childhood Yazidi: Holiness Current Yazidism Affiliation: Holiness Is Spirituality Important to You? yes Patient's Ethnicity: Czechoslovakian, Greenlandic Cultural/Ethnic Issues: none reported Are There Developmental Issues? Yes If Yes, Explain: Pt says when he was a child he was "a slow learner" Milestones Achieved: fine motor, gross motor Psychiatric Treatment History Psych Treatment Inpatient Treatment No (Patient denies) Outpatient Treatment Yes (Psychotropic rx by PCP) Location of Treatment - Reason for Treatment - Dates of Treatment - Response to Treatment - Current Auto Phone Installer: none Treatment of Prior Episodes: pt denies Diagnosis: ADHD, Anxiety, Depression Psychodynamic Issues: pt's is threatening to leave him with their children and pt is gettting evicted from his home Risk Factors: chronic/serious med cond., high anxiety/distress, history of suicide atmpts, male, limited support Substance Use/Abuse History Drug Use/Abuse Substance Used/Abused Prescribed Opiates First Use - Last Used - How much used/taken - How often - For how long - Route of use - Substance Abuse Treatment Substance Abuse Treatment Inpatient Treatment No Outpatient Treatment No Location of Treatment - Reason for Treatment - Dates of Treatment - Response to Treatment - Sexual History Sexually Active Yes # of partners 1 Sexual Orientation Heterosexual Use of Protection No Sexual Concerns: none reported Education History Highest Level of Education: high school/GED Highest Grade Completed: 12 Number of College Years: 0 Other Degree(s): CDL, OSHA HX of Learning Difficulties: Learning Disabilities Barriers to Learning: pt reprots as a child he was "a slow learner" Special Communication Needs: None reported Employment History Employment Unemployed Vocation/Occupational Hx: works in construction No. 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 No Current Mental Status Problem List: 1. Anxiety 2. Overdose 3. ADHD (attention deficit hyperactivity disorder) Mental Status Orientation: Person, Place, Situation Affect: Anxious, Flat Speech: Pressured Neuro-vegetative: Anhedonia, Appetite Increased, Energy Increased, Sleep Disturbance Appearance Appearance- Dress/Hygiene: Patient is dressed in hospital attire with no remarkable features. Behaviors Thought Process: WNL Thought Content: WNL Memory: WNL Insight: Poor SI/HI Risk Assessment Past Suicidal Ideation/Attempts Yes (Past SI/possible attempt) Current Suicidal Ideation/Att No (Patient denies) Past Homicidal Ideation/Att: No Current Homicidal Ideation/Attempts No Degree of Intent: None Danger To: Self Gravely Disabled: Lack of Insight Risk Factors: Chronic/serious med cond, High Anxiety/Distress, Hx of suicide attempt(s), Isolated/no social suppor, Male, Poor impulse control Lethality Ratin - Conclusion and Recommendations for treatment - and discharge planning Summary: Patient is a 45 year old male who was brought in to [facility] emergency department by his brother in-law due to concern he may have consumed an overdose of his prescription medication. Patient is and has two children ages 8 and 11. Per attending physician report, patient stated he took 30 pills in an unspecified combination of 20mg long acting / 15 mg short acting oxycodone tablets which he is prescribed by Dr. Omar Alvarez MD . Collateral information obtained from patients *see report written by Omar Rust. reports she is from patient and that they will be moving out of their home shortly due to nonpayment of rent. There are financial stressors per report and pt. 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 has had some odd behaviors such as binge eating, compulsive smoking of cigarettes, and abnormal movements. Per , pt. has historical diagnoses of ADHD, anxiety, and depression. Pt.s reports pt. may have overdosed on antibiotics over 10 years ago but is unclear. Patient presents anxious / dysphoric with flat affect. Some dystonia observed with abnormal movements. Patient was first laying ridigly in a hyper- extended position and then sitting up w/ tensed muscles. Patient denies suicidal ideation currently and denies intent or plan. Patient stated "I don't want to commit suicide." Patient denies any homicidal ideation or intent ot harm others. Patient denies audiovisual hallucinations and there is no indication of thought disorder. Patient is denying his consumption of pills was an attempt to commit suicide. This ad writer informed patient his toxicology screen did not return a significant result for opioid level. Patient states "looking back, I don't think it was 30 pills....I think it was in the ~20 range." Patient asserts he took the medication because he was experiencing a "sharp pain" in his side. Patient speech was at times pressured with confusing statements such as "my spine is like a microphone...it's a spook....it's like spiderwebs through your body." Patient discussed several concerns regarding his health and requested further medical evaluation of his pain management as he is concerned about how he is metabolizing his medication. Patient also requested assistance of a "state worker" - when asked to elaborate, he indicated he would like assistance with finding housing and with financial benefits as he will soon need to move out his home and is unemployed. Patient does not have Patient did not reply to scaling questions ( ex. - how high is depression on a scale of 1-10 ) but did report significant levels of anxiety, depression, and perceived pain. Crisis consulation reviewed with on-call psychiatrist Dr. Castorena. Patient to be held over-night for further observation and reassessment in the morning. Patient 's toxicology screening is inconsistent with self-report of overdosing on prescription medication. It is unclear if patient attempted suicide as pt. reported in triage and then contradicted during crisis evaluation. Pt's mental status is not stable as he presents anxious with abnormal movements/speech. If pt. is calm / stable in the morning and it is firmly established there was no intent to overdose, pt. may be appropriate for discharge with a referral to an outpatient psychiatry clinic. APOLINAR MALINW> 10/05/16 Crisis spoke by phone with the pts Amber Alexander ([phone]) who stated she is in the process of leaving the pt and was packing items earlier today. The stated she is moving out with their 2 children (ages 11 and 8) during the upcoming week and the pt does not want the separation. Pts reported the pt approached her and stated I have to go to [place], I took a bunch of pills. Mrs. Alexander stated the pt did not tell her what pills or how many. Mrs. Alexander stated her brother was at their apartment and the brother brought the pt to [place]. Mrs. Alexander stated she is unsure of the intent of the pt taking the medication. Mrs. Alexander stated the pt sees a neurologist and has a long hx of ADHD, Anxiety and Depression. Mrs. Alexander stated the pt has not worked much over past year since he was laid off. Mrs. Alexander stated they have no income, she is recovering from Cancer and they are 2 months behind with rent. Mrs. Alexander stated they lost their home 4 years ago due to financial issues. Mrs. Alexander stated this is not the couples first time . Mrs. Alexander stated the pt is not always rational. Three days ago when his car broke down and the wrong part arrived the pt kicked the part around stating I cant do it, I give up, I need to go to the hospital. Mrs. Alexander stated she is unsure if the pt is suicidal. Mrs. Alexander stated that 10 yrs ago the pt claimed he overdosed on antibiotics, she is unsure if actually did took an overdose. Mrs. Alexander is not aware of any past psychiatric hosptializations. Mrs. Alexander stated the pt has 70 bottles of vitamins throughout the house. Mrs. Alexander stated the pt avoids problems and at times has odd behavior. Mrs. Alexander stated that 1 month ago the pt ate 12 ice cream cones in a row at home. The pt will hide food so know one else will eat it. Mrs. Alexander stated despite their financial issues the pt recently smoked 3 packs of cigarettes in half a day and would light a new cigarette without finishing his current cigarette. Mrs. Alexander stated the pt has weird body movements including rigid and jerky motions. Mrs. Alexander stated the pt baseline fidgety and cannot sit still. Mrs. Alexander stated the pt is prescribed Wellbutrin, Valium, Oxycontin and Oxycodone, meloxicam ( is unsure of the correct spelling) and hormone cream she believes may be testerone. Crisis spoke by phone with the pts Amber Alexander ([phone]) who stated she is in the process of leaving the pt and was packing items earlier today. The stated she is moving out with their 2 children (ages 11 and 8) during the upcoming week and the pt does not want the separation. Pts reported the pt approached her and stated I have to go to [place], I took a bunch of pills. Mrs. Alexander stated the pt did not tell her what pills or how many. Mrs. Alexander stated her brother was at their apartment and the brother brought the pt to [place]. Mrs. Alexander stated she is unsure of the intent of the pt taking the medication. Mrs. Alexander stated the pt sees a neurologist and has a long hx of ADHD, Anxiety and Depression. Mrs. Alexander stated the pt has not worked much over past year since he was laid off. Mrs. Alexander stated they have no income, she is recovering from Cancer and they are 2 months behind with rent. Mrs. Alexander stated they lost their home 4 years ago due to financial issues. Mrs. Alexander stated this is not the couples first time . Mrs. Alexander stated the pt is not always rational. Three days ago when his car broke down and the wrong part arrived the pt kicked the part around stating I cant do it, I give up, I need to go to the hospital. Mrs. Alexander stated she is unsure if the pt is suicidal. Mrs. Alexander stated that 10 yrs ago the pt claimed he overdosed on antibiotics, she is unsure if actually did took an overdose. Mrs. Alexander is not aware of any past psychiatric hosptializations. Mrs. Alexander stated the pt has 70 bottles of vitamins throughout the house. Mrs. Alexander stated the pt avoids problems and at times has odd behavior. Mrs. Alexander stated that 1 month ago the pt ate 12 ice cream cones in a row at home. The pt will hide food so know one else will eat it. Mrs. Alexander stated despite their financial issues the pt recently smoked 3 packs of cigarettes in half a day and would light a new cigarette without finishing his current cigarette. Mrs. Alexander stated the pt has weird body movements including rigid and jerky motions. Mrs. Alexander stated the pt baseline fidgety and cannot sit still. Mrs. Alexander stated the pt is prescribed Wellbutrin, Valium, Oxycontin and Oxycodone, meloxicam ( is unsure of the correct spelling) and hormone cream she believes may be testerone. Mrs. Alexander stated she believes the pt will be able to stay with his mother once they lose their apartment. [facility]> 10/05/16 Crisis re-evaluated pt this morning. Pt continues to deny SI and requests an out pt referral and discharge. Case was reviewed with Dr. Swain and he will make recommendations later this morning. SIL[facility]IA KAYE [facility]> 10/06/16 Pt's story has changed several times. it is not clear if he made a suicide attempt or not. Pt has no protective factors and does not have a safe dispo plan. Dr Tony recommends pt be admitted to [facility]. Pt refuses to be admitted voluntarily, so pt has been placed on a PEC. Pt refused to participate in admission process, so diagnostic eval was limited and many questions were unable to be answered. [facility]IA [facility]> 10/06/16
--- NOTE | 2016-10-07 10:49 | CPS MD/APRN INITIAL ASSE PSYCH ---
Psychiatric Admission Director Of Software Development's Note Reviewed: Yes Patient Seen and Examined: Yes Identifying Information: Patient is a 45-year-old male. Chief Complaint: Patient was brought to the emergency department for suspicion of an intentional overdose of prescribed oxycodone tablets. Today patient denies taking an overdose. States he said that because he was looking for attention from his . His is currently estranged, and moved with their 2 daughters ages 8 and 11, to [place] yesterday to stay with friends. Reaction to Hospitalization: Cooperative, pleasant. History of Present Illness Onset of Illness: As per the crisis report, patient's stated that the patient has a long history of scoliosis, ADHD, anxiety and depression. Circumstances Leading to Admission: Patient brought into the ER by his [id number] after suspicion that the patient overdosed on his prescription medicine. Problem(s) Justifying Need for Admission: Rule out Intentional overdose. Past Psychiatric History Past Diagnosis(es)- if any: ADHD. Anxiety. Depression. Scoliosis. Rheumatoid arthritis. Left inguinal hernia repair. Past Precipitating Factors- if any: Estrangement from his , who moved yesterday to [place] with their 2 daughters ages 8 and 11 years old, to stay with friends. - Include inpatient and outpatient treatment Treatment History: Denies previous psychiatric care. Primary care: Dr Ragland and Dr Gonsalves Neurology: Dr. Zuniga Pain Mgmt: Dr. Plaza History of Suicide Attempts or Gestures Denies Substance Abuse History: Denies Allergies: Coded Allergies: NO KNOWN ALLERGIES (10/05/16) Home Med List: Testosterone 1% gel. Wellbutrin 100 TID. Oxycodone 15 mg every 6 hours as needed. OxyContin CR 20 mg twice daily. Ibuprofen 600 mg every 6 hours as needed. Diazepam 5mg prn (10 tabs prescribed for 30days). Meloxicam 7.5mg, BID PRN. 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 Significant Relationships (family/friends): Patient has 2 daughters 8 and 11 years old. 2 stepchildren in their 20s. Currently from his . One brother lives in [place]. One brother lives in [place]. Mother who lives in [place]. Father many years ago. Education: Graduated high school. 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 - #1 Recognizing dangerous situations. - #2 Coping Skills. - #3 Basic information about quitting. Status of Tobacco Cessation Counseling: #1, #2 AND #3 Completed Cessation Med Status: Nicotine Patch Ordered Alcohol Screening - ETOH screen POS if BAL >=80 or Audit-C>= M4/F3 Audit-C Score from Diag Assess: 0 Blood Alcohol Level: Laboratory Tests 10/05 1232 Toxicology Serum Alcohol (<10 MG/DL) < 10.0 Alcohol Use Screening Results: Neg per Audit C &/or BAL - If ETOH counseling indicated - the following topics are required. - #1 Express concern about the patient's - drinking at unhealthy levels, include informing - of national norms for moderate drinking: - men <= 14 drinks/week, max 4 drinks/occasion - women <= 7 drinks/week, max 3 drinks/occasion - #2 Providing feedback, including linking alcohol to - negative physical effects (liver injury, hypertension) - negative emotional effects (relationship problems and - depression) - negative occupational consequences (reduced work - performance) - #3 Advising the patient to abstain from alcohol or - to drink below national norms for moderate drinking - (as listed above). Status of ETOH Use Counseling: N/A B/C NO ETOH Use Metabolic Screening - Screen if on a Neuroleptic Medication - Metabolic screening should include: - Blood Pressure, BMI, Glucose or Hgb A1c, & a - Lipid profile from within the past 365 days. Metabolic Screening ([x]) Not Applicable, patient not on a neuroleptic. OR () Patient on a neuroleptic(s) . Enter below results for Glucose or Hemoglobin A1C, and lipid panel if obtained during the last 365 days. BMI: 22.000 Blood Pressure: 140/86 Laboratory Results (If applicable): Exam and Plan Mental Status Examination Ambulation Status: Ambulates independently with steady gait. Appearance: Well groomed and appropriately dressed Attitude towards examiner: Cooperative and pleasant Psychomotor activity: Within normal limits Behavior: Cooperative and pleasant Quality of speech: Speech is adequately articulated, goal-directed, average in rate, volume and tone. At times patient does not complete his thought when speaking. Affect: Congruent Mood: Euthymic Suicidal Ideation: Denies states that he did not take an overdose of pills. He was simply looking for attention from his prior to her leaving for [place] with her children. Homicidal Ideation: Denies Hallucinations: Denies Paranoid/Delusional Material: Denies Difficulties with thought organization: Within normal limits Insight: Fair Judgment: Poor Orientation: Alert and oriented to person, place and time. Cognition: Within normal limits Memory Function: Within normal limits Estimate of intellectual functioning: Average Assets/Strengths Patient Identified Assets/Strengths: "I'm a good worker. I'm dedicated." Impression/Plan Impression and Plan: This a 45-year-old male, who claims that he told a story of overdosing on pills in order to gain attention from his who is leaving him. History of some attention deficit problems, depression and anxiety related to pain from scoliosis. Patient may be at risk for actual overdose or suicidality, and we will work with the patient to establish a safety plan for discharge. - Include all active medical diagnosis that require tx DSM 5 Diagnosis(es): F32.9 Unspecified Depressive Disorder F41.9 Unspecified Anxiety Disorder Rule - out for F90.2 Attention-deficit/hyperactivity disorder, Combined presentation F11.20 Opioid Use Disorder - Initial Tx Plan for Active Psych & Medical Conditions Treatment Plan: PLAN: The patient will be monitored on the unit for safety, depression, anxiety and to rule out suicidal ideation. Additional information is needed from collaterals, which the patient has not identified at this time. Anticipate once clinically stable, that the patient will be discharged to home and family and be referred to [facility]. - Factors that would help patient function - in a less restrictive setting. Factors: Resolution of suicidality, and establishment of a safety plan.
[2016-10-07 11:31] VITALS: BP 144/87
--- NOTE | 2016-10-07 13:45 | History & Physical ---
General Information and HPI MD Statement: I have seen and personally examined KAYLYNN YAÑEZ and documented this H&P. The patient is a 45 year old M who presented with a patient stated chief complaint of "I took 40 oxys today". Source of Information: patient Exam Limitations: no limitations History of Present Illness: 45-year-old white male apparently took OxyContin pills 50 mg each 1 hour before coming to the ER this pills were prescribed to him for chronic back pain. He stated "I really don't know why he took the pills" admits to depression but no alcohol or illicit drug use Allergies/Medications Allergies: Coded Allergies: NO KNOWN ALLERGIES (10/05/16) Home Med list Bupropion HCl 100 MG TABLET 100 MG PO DAILY DEPRESSION (Reported) Meloxicam 7.5 MG TABLET 1 TAB PO DAILY INFLAMMATION (Reported) Oxycodone Cr (OxyContin) 20 MG TAB.ER.12H 1 TAB PO BID PAIN (Reported) Oxycodone HCl 15 MG TABLET 1 TAB PO TIDPRN pain (Reported) OXYCODONE HCL/ACETAMINOPHEN (Percocet 5-325 MG Tablet) 325 MG/5 MG TAB 1 TAB PO Q4-6 PRN PRN PAIN Testosterone 10 MG (2%) GEL..LUMBER BEARER 1 DEDRICK TOP BID HRT (Reported) Compliance With Home Meds: UNKNOWN Past History Travel History Traveled to [place] past 21 day No Medical History Neurological: NONE EENT: NONE Cardiovascular: HOLE IN HEART SLIGHT LEAK IN VALVE Respiratory: NONE Gastrointestinal: NONE Hepatic: NONE Renal: NONE Musculoskeletal: SCOLIOSIS RA Psychiatric: NONE Endocrine: NONE Blood Disorders: NONE Cancer(s): NONE 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 Home Who Do You Live With? 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 Exam & Diagnostic Data Last 24 Hrs of Vital Signs/I&O Vital Signs Date Time Temp Pulse Resp B/P Pulse O2 O2 Flow FiO2 Ox Delivery Rate 10/07 1131 93 144/87 10/07 0736 96.7 88 140/86 10/06 1949 98.4 87 147/86 10/06 1548 81 143/86 Physical Exam General Appearance Alert, Oriented X3, Cooperative, No Acute Distress Skin No Rashes, No Breakdown, No Significant Lesion HEENT Atraumatic, PERRLA, EOMI, Mucous Membr. moist/pink Neck Supple, No JVD, No thryomegaly, +2 Carotid Pulse wo Bruit, No LAD Lymphatic Axillary nl, Cervical nl Cardiovascular Regular Rate, No Murmurs Lungs Clear to Auscultation, Normal Air Movement Abdomen Normal Bowel Sounds, Soft, No Tenderness, No Hepatospenomegaly, No Masses Neurological Exam Findings: Normal Gait, Normal Speech, Strength at 5/5 X4 Ext, Normal Tone, Sensation Intact, Cranial Nerves 3-12 NL, Reflexes 2+ Cranial Nerves II through XII: Intact Extremities No Cyanosis, No Edema, Normal Pulses, No Tenderness/Swelling Vascular Normal Pulses, Pulses Symmetrical Last 24 Hrs of Labs/Josh: Laboratory Tests 10/05/16 1520: Urine Opiates Screen 1650.00, Methadone Screen < 40, Barbiturate Screen < 60, Ur Phencyclidine Scrn < 6.00, Amphetamines Screen 341, U Benzodiazepines Scrn < 85, Urine Cocaine Screen < 50, Urine Cannabis Screen < 5.00 10/05/16 1232: Anion Gap 13, Estimated GFR > 60, BUN/Creatinine Ratio 18.0, Glucose 203 H, Hemoglobin A1c 4.5, Calcium 9.9, Total Bilirubin 1.7 H, AST 43, ALT 38, Alkaline Phosphatase 42, Total Protein 7.5, Albumin 4.7, Globulin 2.8, Albumin/ Globulin Ratio 1.7, CBC w Diff NO MAN DIFF REQ, RBC 5.61, MCV 91.3, MCH 30.8, RDW 12.9, MPV 8.6, Gran % 67.6, Lymphocytes % 23.9, Monocytes % 5.9, Eosinophils % 2.3, Basophils % 0.3, Absolute Granulocytes 4.4, Absolute Lymphocytes 1.5, Absolute Monocytes 0.4, Absolute Eosinophils 0.2, Absolute Basophils 0, PUBS MCHC 33.8, Salicylates < 1.0, Acetaminophen < 10.0 L, Serum Alcohol < 10.0 Assessment/Plan As Ranked By This Provider Problem List: 1. Overdose 2. Anxiety 3. Depression Miscellaneous Miscellaneous Documentation Attending Case Discussed With: YANG PROCTOR,CHRIS Primary Care Physician: TOMÁS ALVAREZ MD Patient sees these Specialists Psychiatry Level of Patient Care: [facility] Consults Needed: Consulting Specialty: Psychiatry Consulting Physician: Dr. Swain Reason for Consult: depression and possible drug overdose
--- NOTE | 2016-10-07 14:20 | NUR ---
PT IS VISIBLE ON UNIT, SOCIALIZING WITH PEERS. AT TIMES PT WITH ISOLATE IN ROOM BUT RESPONDS WELL TO ENCOURAGEMENT TO ATTEND GROUPS AND HAS GONE TO ALL GROUPS THROUGHOUT THE DAY. VERY COOPERATIVE AND COMPLIANT WITH STAFF. BLOOD SUGAR WITHIN NORMAL RANGE. NO COMPLAINTS OR SI REPORTED. PT HAS A STABLE MOOD AND CONSTRICTED AFFECT.
[2016-10-07 16:08] VITALS: BP 151/75
[2016-10-07 19:42] VITALS: BP 147/79
--- NOTE | 2016-10-07 20:37 | NUR ---
Pt is out in the kt interacts well with his peers, compliant with the staff. No behavioral issues noted during the day. Vital signs are stable. Will continue to monitor the pt overnight.
[2016-10-08 07:53] VITALS: BP 142/83
--- NOTE | 2016-10-08 08:45 | CP SOUTH PROGRESS NOTE PSYCH ---
Psych (Inpt) Progress Note Progress Note Progress Note: I discussed this patient's progress to date, current mental status, treatment process in the context of the treatment plan, and discharge planning with staff/ team in the daily morning inpatient team meeting. I also met with the patient myself in individual session. SUBJECTIVE: "The depression and anxiety, that's just normal life. That's not changing." OBJECTIVE: Current Medications Sig/Sergio Start time Last Medication Dose Route Stop Time Status Admin Al Hydroxide/Mg 30 ML Q4-6 PRN PRN 10/06 1200 AC Hydroxide PO Bupropion HCl 200 MG 0800,0 10/08 2200 AC PO Bupropion HCl 150 MG 0800,0 10/07 2200 DC 10/07 PO 2210 Bupropion HCl 100 MG 0800 10/07 0800 DC 10/07 PO 0926 Gabapentin 300 MG Q6P PRN 10/06 1200 AC PO Ibuprofen 600 MG Q6P PRN 10/06 1215 AC 10/07 PO 1257 Magnesium Hydroxide 30 ML .STK-MED ONE 10/07 2208 DC PO 10/07 2209 Magnesium Hydroxide 30 ML AT BEDTIME NEED.. 10/06 1200 AC 10/07 PO 2214 Multivitamins 1 TAB DAILY@0800 10/07 0800 AC 10/07 PO 0926 Nicotine 2 MG Q2 HRS NEEDED PRN 10/06 1745 AC 10/08 PO 0746 Nicotine 14 MG DAILY 10/06 1455 AC 10/07 TOP 0927 Oxycodone HCl 15 MG Q6P PRN 10/06 1215 AC 10/08 PO 0706 Oxycodone HCl 20 MG BID 10/06 1202 AC 10/07 PO 2210 Testosterone 5 GM DAILY 10/07 1000 AC 10/07 TOP 0750 Trazodone HCl 50 MG AT BEDTIME NEED.. 10/06 1200 AC PO Vital Signs Date Time Temp Pulse Resp B/P Pulse O2 O2 Flow FiO2 Ox Delivery Rate 10/08 0753 96.8 90 142/83 10/07 1942 97.3 91 147/79 10/07 1608 86 151/75 10/07 1131 93 144/87 ASSESSMENT: Patient reports that he is doing well, states that he is having depression and anxiety, mostly centered around life circumstances including unemployment, and having his and 2 daughters leave him and move to [place] 2 days ago. He continues to deny ever having suicidal ideation, and continues to deny having taken an overdose. He stated he made those claims in the hopes of getting attention from his prior to her leaving for [place]. States that he is looking forward to working out his problems at [facility]. Also requesting help to find legal assistance, and to get "assistance from the state." Reports that Wellbutrin works well, states "it mellows me out." States that the testosterone gel helps for anxiety, stress and pain. Denies suicidal ideation, homicidal ideation, auditory hallucinations, visual hallucinations, paranoid ideation. Patient states and also believes that he will not kill himself. Reports sleeping well at night. Appetite is "great." Speech is well articulated, goal-directed, average in rate, volume and tone. Somewhat pressured. The patient understands the risks/benefits/side effects of the medication and is agreeable to continue taking them. Patient states he will contact his [id number] to set up a family meeting. Patient understands that we feel a family meeting as needed prior to discharge. PLAN: Patient agrees to an increased dose of Wellbutrin SR. We reviewed risks, benefits and side effects. Anticipate family meeting tomorrow. Continue with other current management as patient is improving. Continue to provide support and encouragement.
--- NOTE | 2016-10-08 11:18 | NUR ---
Pt presents with a broad affect and euthymic mood. Pleasant, calm and coperative. Visible on the unit and social with select peers, interacts appropriately on approach. Blood sugar this am 93. Denies SI/HI/AVH at this time. Compliant with scheduled medications and denies any side effects. Wellbutryn increased to 200mg bid, will give as per order. Q15 minutes checks maintained for safety and observation. Will continue to monitor and offer support as needed.
[2016-10-08 12:24] VITALS: BP 134/80
--- NOTE | 2016-10-08 14:03 | SOCIAL WORKER PROG NOTE PSYCH ---
Social Work Progress Note Progress Note Pt was granted 2 more days and his insurance review will be Fiday the . Please call [phone] as Amber white not be in the office that day.
--- NOTE | 2016-10-08 14:22 | SOCIAL WORKER PROG NOTE PSYCH ---
Social Work Progress Note Progress Note Met with Toan today, covering for Pinky Baker LCSW. Toan statd he has no SI/HI , he reported "It was a mistake, I was looking for attention." Toan was referencing the overdose. He stated he didn't take any overdose. He stated he has alot going on ..."My left withmy 2 kids, and I need to get things in order." He reports financial issues, behind in rent $1,400, he wants to get back to work but not too soon. Discussed IOP as an option, he declined stating he prefers outpatient do he can get back to work. Explained the [facility] IOP program vs. outpatient, and he stated he prefers OPS. He presents as anxious, pressured speech. 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 He was interested in financial assistance - suggested DSS for [employer] assistance and food card (no guarantee he will be accepted), gave him the website to apply. Also, he wants disability - informed Toan he can go to Social Security office to get the application or print it off the website. Printed the sites for him for both Social security and DSS. He spoke in detail about his medical issues, and how he has been taking care of his health. His PCP is Dr. Gonsalves, Toan stated the hormone replacement therapy has really helped him. Informed Toan his therapist, Pinky Baker LCSW will be back tomorrow, for family meeting. Toan wants to discharge tomorrow, he is considering signing in Voluntarily.
[2016-10-08 15:52] VITALS: BP 149/92
[2016-10-08 19:28] VITALS: BP 144/77
--- NOTE | 2016-10-08 21:23 | NUR ---
PT IS VISIBLE ON UNIT, WATCHING TV AND MOSTLY STAYINGT TO HIMSELF. WILL SOCIALIZE WITH A SELECT FEW PEERS. VERY PLEASANT AND COOPERATIVE. ATTENDED WRAP UP MEETING AND PARTICIPATED. NO COMPLAINTS OR SI REPORTED. PT HAS A STABLE MOOD AND CONSTRICTED/FLAT AFFECT.
--- NOTE | 2016-10-09 06:59 | NUR ---
PT ASLEEP BY 0030 AND APPEARED TO SLEEP WELL.
[2016-10-09 07:54] VITALS: BP 146/90
[2016-10-09 12:16] VITALS: BP 106/78
--- NOTE | 2016-10-09 12:55 | NUR ---
PT HAS BEEN VISIBLE IN THE [place] TODAY. HIS GOAL WAS TO MAKE PLANS FOR DISCHARGE. HE HAS BEEN ATTENDING GROUPS, AND INTERACTING WITH HIS PEERS AND STAFF ALIKE. PT IS CALM, PLEASANT AND COOPERATIVE, HE DENIES HAVING THOUGHTS TO HURT HIMSELF WHEN ASKED.
[2016-10-09 16:10] VITALS: BP 145/97
--- NOTE | 2016-10-09 16:19 | CP SOUTH PROGRESS NOTE PSYCH ---
Psych (Inpt) Progress Note Progress Note Include the following elements, when applicable: Involvement in the active treatment of the patient with behavioral observations of the patient and the patient's response to the treatment. Review of the ongoing treatment process in the context of the treatment plan. Indication of how multi-disciplinary staff members are carrying out the treatment plan. Plans for future interventions and recommendations for revision of the treatment plan. Liaison with other physicians/providers. Progress Note: [I discussed this patient's progress to date, current mental status, treatment process in the context of the treatment plan, and discharge planning with staff/ team in the daily morning inpatient team meeting. I also met with the patient myself in individual session.] S: "I'm doing ok, when do you think I can leave?" O: Current Medications Sig/Sergio Start time Last Medication Dose Route Stop Time Status Admin Al Hydroxide/Mg 30 ML Q4-6 PRN PRN 10/06 1200 AC Hydroxide PO Bupropion HCl 200 MG 0800,2200 10/08 1045 AC 10/09 PO 0809 Gabapentin 300 MG Q6P PRN 10/06 1200 AC 10/09 PO 1539 Ibuprofen 600 MG Q6P PRN 10/06 1215 AC 10/08 PO 1904 Magnesium Hydroxide 30 ML AT BEDTIME NEED.. 10/06 1200 AC 10/07 PO 2214 Multivitamins 1 TAB DAILY@0800 10/07 0800 AC 10/09 PO 0809 Nicotine 2 MG Q2 HRS NEEDED PRN 10/06 1745 AC 10/09 PO 1539 Nicotine 14 MG DAILY 10/06 1455 AC 10/09 TOP 0832 Oxycodone HCl 15 MG Q6P PRN 10/06 1215 AC 10/09 PO 1304 Oxycodone HCl 20 MG BID 10/06 1202 AC 10/09 PO 0953 Testosterone 5 GM DAILY 10/07 1000 AC 10/09 TOP 0810 Trazodone HCl 50 MG AT BEDTIME NEED.. 10/06 1200 AC PO Vital Signs Date Time Temp Pulse Resp B/P Pulse O2 O2 Flow FiO2 Ox Delivery Rate 10/09 1216 88 106/78 10/09 0754 97.3 90 146/90 10/08 1928 98.2 92 144/77 A: Chart, progress notes, VS, labs and medication list were reviewed. Vital signs remain stable. There were no new lab results today. Met with patient today, together with Pinky Baker LCSW. This was this administrative underwriter's first encounter with patient today (covering for Floyd Naranjo APRN). Patient recounted the reason for his inpatient hospitalization being that his suddenly moved to [place] with his two children (8 and 11 years old). He reported that prior to her leaving the house, he reported taking an overdose of prescribed opiates which he reported he did not take. He reported this report was an "attention seeking" behavior (and not a suicide attempt), in an effort to stop her from leaving. His Utox was (+) for opiates on admission however was less than 2000 ng/ml and possibly consistent with prescribed opiate regimen versus opiate overdose. Per chart review, it does not appear that patient was narcaned prior to ED arrival. During encounter, patient presented A&Ox4. He reported the separation of his /children was very stressful for him. He reported no prior marital issues prior to this, but reported "my isn't who she appears to be." He reported he recently found out that she was not paying the rent on their apartment, which appeared to be another source of stress for the patient. He also related feeling stressed that his insurance may possibly lapse at the end of this month. Occasionally the patient's responses were vague, and at times he appeared socially awkward possibly related to underlying anxiety. His speech was normal in rate, tone and volume. Eye contact was appropriate. Mood was "a little anxious" and reported his anxiety fluctuates. He denied acute symptoms of depression/sadness, however repeatedly reported that "what my did was hurtful." Patient did not elaborate further on this but alluded to this being related to her abrupt separation with their children. He denied passive and active suicidal ideation, plans and intent. He denied homicidal ideation, auditory and visual hallucinations. He denied racing thoughts. Thought process was concrete and linear. Thought content was mildly anxious. Cognition was grossly intact. There was no evidence of hallie delusions or paranoia, or symptoms of sumi/hypomania. He reported his sleep and appetite were good. Patient reported still being bothered by chronic pain. Recommended increasing Ibuprofen from 600mg TID to 800mg TID, however patient declined. Also informed patient of order for Gabapentin 300mg TID prn for anxiety. Provided education on this medication for use of anxiety in addition to neuropathic pain. Patient verbalized understanding of education and was agreeable to trial as ordered for anxiety and pain. Patient reported tolerating medications well and denied untoward medication effects. He was not agreeable to making medication changes. P: 1. Continue monitoring patient on unit for safety, suicidal ideation, mood and pain. 2. Continue current medications, as patient was not in favor of further medication changes. 3. Family meeting likely tomorrow with patient's [id number]. 4. Dispo planning per primary team - likely refer to [facility] for after care as patient was agreeable.
--- NOTE | 2016-10-09 16:33 | SOCIAL WORKER PROG NOTE PSYCH ---
Social Work Progress Note Progress Note Zohreh Sykes APRN and I met with Toan together. Toan presents as somewhat anxious and sad about his current life situation. He is experiencing a crisis since his left him with their 2 children. She is currently in [place] staying at a friend's house. He reports that this isn't the first time she has left him. I asked if he had any concerns for his children's safety or well being? He said no. He is worried about financial stress due to his being gone and he is currently laid off from work. He said he is looking for some state help. His insurance will be running out in a couple of weeks. I told him I could help him see if he would qualify for state insurance. He is appreciative of any help he can get. Discussed going to [facility] for support post discharge. He is very open to attending [facility]. Toan continues to tell the treatment team here that he did not overdose on pills and that he just said this to get his 's attention before she left. He currently does not feel suicidal, denies any auditory or visual hallucinations. States he feels alot of sadness and that he is trying to get his life back in order. Reports that this has happened before and that he knows how to work through his anxiety. Talked about having his Brother Marcus in for a meeting tomorrow. He is open to it. Gave Toan the number for [employer] and helped him call. He was elegible for Merary Cabrera effective 09/24/16- 09/13. Application # [id number]. He should get a card in the mail in a week. Called and scheduled a family meeting for 11am with Alonso Juarez (Brother marcus) [phone]. Called to schedule Intake at [facility]. The next available intake would be Thursday at 12:45pm.
[2016-10-09 19:41] VITALS: BP 154/89
--- NOTE | 2016-10-09 21:35 | NUR ---
PT IS VISIBLE ON UNIT, SOCIAL WITH PEERS BUT NOT MUCH WITH STAFF. ATTENDED WRAP UP MEETING. ALSO JOINED PEERS IN DOING YOGA IN GROUP ROOM. COOPERATIVE AND COMPLIANT. NO COMPLAINTS OR SI REPORTED. PT HAS A STABLE MOOD AND CONSTRICTED AFFECT.
--- NOTE | 2016-10-10 06:01 | NUR ---
PT APPEARED TO SLEEP WELL.
[2016-10-10 07:44] VITALS: BP 139/78
--- NOTE | 2016-10-10 08:44 | IP INCIDENTAL NOTE PSYCH ---
Incidental Note Notation: Spoke to patient's outpatient neurologist Dr. Zuniga at 11:50AM who reported he had been treating patient for ADHD and anxiety with Wellbutrin. Dr. Zuniga reported that he had never known patient to endorse suicidal ideation and denied patient ever made attempts of suicide. He described the patient as having anxiety and being stressed. He expressed no acute safety concerns about patient and was in favor of discharge recommendation to [facility] level of care.
--- NOTE | 2016-10-10 11:13 | IP INCIDENTAL NOTE PSYCH ---
Incidental Note Notation: Message left with Dr. Zuniga's licensed loan officer at 11:10AM for Dr. Zuniga to return my phone call to obtain collateral on patient.
[2016-10-10] MEDS ORDERED: ONE DAILY MULT1 EAC2 PO (11:36)
[2016-10-10] MEDS ORDERED: NICOTINE PATCH1 EAC2 TOP (11:39)
[2016-10-10] MEDS ORDERED: WELLBUTRIN SR200 M2 PO (11:39)
[2016-10-10] MEDS ORDERED: GABAPENTIN300 M2 PO (11:39)
--- NOTE | 2016-10-10 11:44 | CP SOUTH PROGRESS NOTE PSYCH ---
Psych (Inpt) Progress Note Progress Note Include the following elements, when applicable: Involvement in the active treatment of the patient with behavioral observations of the patient and the patient's response to the treatment. Review of the ongoing treatment process in the context of the treatment plan. Indication of how multi-disciplinary staff members are carrying out the treatment plan. Plans for future interventions and recommendations for revision of the treatment plan. Liaison with other physicians/providers. Progress Note: [I discussed this patient's progress to date, current mental status, treatment process in the context of the treatment plan, and discharge planning with staff/ team in the daily morning inpatient team meeting. I also met with the patient myself in individual session.] S: "I'm good, I feel better." O: Current Medications Sig/Sergio Start time Last Medication Dose Route Stop Time Status Admin Al Hydroxide/Mg 30 ML Q4-6 PRN PRN 10/06 1200 AC Hydroxide PO Bupropion HCl 200 MG 0800,2200 10/08 1045 AC 10/10 PO 0744 Gabapentin 300 MG Q6P PRN 10/06 1200 AC 10/09 PO 1539 Ibuprofen 600 MG .STK-MED ONE 10/09 1915 DC PO 10/09 1916 Ibuprofen 600 MG Q6P PRN 10/06 1215 AC 10/09 PO 1920 Magnesium Hydroxide 30 ML AT BEDTIME NEED.. 10/06 1200 AC 10/07 PO 2214 Multivitamins 1 TAB DAILY@0800 10/07 0800 AC 10/10 PO 0744 Nicotine 2 MG Q2 HRS NEEDED PRN 10/06 1745 AC 10/10 PO 1107 Nicotine 14 MG DAILY 10/06 1455 AC 10/10 TOP 0816 Oxycodone HCl 15 MG Q6P PRN 10/06 1215 AC 10/10 PO 0746 Oxycodone HCl 20 MG BID 10/06 1202 AC 10/10 PO 1106 Testosterone 5 GM DAILY 10/07 1000 AC 10/10 TOP 0804 Trazodone HCl 50 MG AT BEDTIME NEED.. 10/06 1200 AC PO Vital Signs Date Time Temp Pulse Resp B/P Pulse O2 O2 Flow FiO2 Ox Delivery Rate 10/10 0744 96.6 92 139/78 10/09 1941 98.6 97 154/89 10/09 1610 104 145/97 10/09 1216 88 106/78 A: Chart, progress notes, VS, labs and medication list were reviewed. No new lab results today. Vital signs remain stable. Reviewed patient's progress to date with nursing staff. Patient's mood has been stable, he denied suicidal and homicidal thoughts. Patient has been attending milieu groups and maintaining safety on unit. Family meeting was held with the patient, his rgjnatj-cx-nng (Alonso), Pinky Baker LCSW, and this medical technical writer. The patient's treatment progress to date, medication regimen, level of safety and discharge planning were reviewed and discussed. Alonso had no safety concerns about the patient's discharge or discharge plan. He reported that the patient will be staying together over the weekend, until attending scheduled IOP intake on 10/13/16 at 12:45PM. Met with patient on the date of discharge. He presented alert and oriented to person, place, time and situation. Eye contact was appropriate. Speech was normal in rate, tone and volume. Affect was full-range. Mood was "good, I feel better." He had no complaints. He denied feeling hopeless, helpless, worthless, or guilty. He reported depression of 0/10 (10 being the worst) and anxiety of 0/ 10 (10 being the worst). He denied passive and active suicidal ideation, plans and intent. He denied homicidal ideation. He stated and also believed he will not harm himself or others. He identified protective favtors of "my kids," "my mom," and "Alonso (clqoftq-lx-qem/friend)." He denied auditory and visual hallucinations. Thought process was concrete and linear. Thought content was appropriate. Cognition was grossly intact. He reported tolerating all medications well and denied untoward medication effects. He reported feeling safe and ready for discharge. He was favor of discharge plan to attend [facility]; intake scheduled on 10/13/16 at 12:45PM. P: 1. Discharge to home. Patient's rcnhhva-al-xki, Alonso, will pick patient up from hospital. 2. F/u with IOP intake on 10/13/16 at 12:45PM. 3. Smoking Cessation Program information was provided to patient. Encouraged to attend smoking cessation group on 10/15/16 at 4PM for assistance with smoking cessation. 4. All discharge prescriptions were reviewed with the patient, and provided on discharge. Patient verbalized he should have adequate supplies of pain medications at home but expressed concern that his may have taken prescriptions. He was advised to follow-up with pain management prescriber for refill on pain medications if that was the case. Per [facility], patient filled 30 days rx's of Oxycodone and Oxycontin on 09/22/16. Patient verbalized understanding. 5. In the event of an emergency, call 911/go to nearest emergency department. Patient verbalized understanding of instruction.
--- NOTE | 2016-10-10 11:45 | DISCHARGE SUMMARY REPORT-PSYCH ---
Visit Information Visit Dates/Diagnosis' Admission Date: 10/06/16 Discharge Date: 10/10/16 Reason for Admission: Patient was brought to the emergency department for suspicion of an intentional overdose of prescribed oxycodone tablets. Psy Discharge Primary Diag: Unspecified Depressive Disorder Psy Discharge Secondary Diag: Unspecified Anxiety Disorder; R/O ADHD; R/O Opiate Use Disorder; Chronic pain; Scoliosis. Hospital Course Significant Lab Findings: Lab Glucose 203 mg/dL H 10/05/16 1232 Total Bilirubin 1.7 mg/dL H 10/05/16 1232 Urine Opiates Screen 1650.00 NG/ML 10/05/16 1520 Course Complications: None. Consultations: The patient was seen for admission history and physical by hand booked folder and stitcher Dr. Korey Gomez. Please see his note for additional information. Allergies: Coded Allergies: NO KNOWN ALLERGIES (10/05/16) Hospital Course/TX Response: The patient was monitored on the unit for safety, suicidal ideation, and mood. He participated in mutimodal treatments on the unit. Wellbutrin 100mg three times daily was increased to 200mg twice daily for depression. Gabapentin 300mg every six hours as needed was started for anxiety. The patient tolerated all medications well and denied untoward medication effects. During the hospital course, the patient's mood and affect improved. The patient consistently denied suicidal ideation and taking an intentional overdose of prescription oxycodone; he reported he made this statement in an attempt to win attention from his who left him and took their children. A family meeting was held with the patient, his jgxrvre-do-fqz, Pinky Baker LCSW, and this report writer. The patient's treatment progress, level of safety, medication regimen, and discharge plan were reviewed and discussed. The patient's werfjlm-bp-zel had no safety concerns regarding the patient or discharge plan for him to follow-up with [facility] for continued management of psychiatric medications and treatment. The patient's uhusflv-cw-dlt reported that he and the patient would be staying together until the start of [facility] intake. The patient and his tzqtheq-sb-ojf were in favor of discharge plan. On the date of discharge, 10/10/16, the patient presented alert and oriented to person, place, time and situation. Eye contact was appropriate. Speech was normal in rate, tone and volume. Affect was full-range. Mood was "good, I feel better." He had no complaints. He denied feeling hopeless, helpless, worthless, or guilty. He reported depression of 0/10 (10 being the worst) and anxiety of 0/ 10 (10 being the worst). He denied passive and active suicidal ideation, plans and intent. He denied homicidal ideation. He stated and also believed he will not harm himself or others. He identified protective factors of "my kids," "my mom," and "Alonso (figrrxp-sr-fic/friend)." He was future oriented to resume work. He denied auditory and visual hallucinations. He reported his sleep was fair and appetite was good. Thought process was concrete and linear. Thought content was appropriate. Cognition was grossly intact. He reported tolerating all medications well and denied untoward medication effects. He reported feeling safe and ready for discharge. He was favor of discharge plan to attend [facility]; intake scheduled on 10/13/16 at 12:45PM. Discharge HBIPS - Tobacco Use Treatment Offered Post DC Medications Offered: Script Given-See Med List Post DC Tobacco Treatment Plan: [facility] Program Appt Date: 10/15/16 Program Appt Time: 1600 - EtOH/Drug Use D/O Treatment Offered Post DC Medications Offered: NA-No EtOH/Drug Use D/O Post DC EtOH/SubAbuse TX Plan: NA-No EtOH/Drug Use D/O Metabolic Screening - Screen if on a Neuroleptic Medication - Metabolic screening should include: - Blood Pressure, BMI, Glucose or Hgb A1c, & a - Lipid profile from within the past 365 days. Metabolic Screening ([X]) Not Applicable, patient not on a neuroleptic. OR () Patient on a neuroleptic(s) . Enter below results for Glucose or Hemoglobin A1C, and lipid panel if obtained during the last 365 days. BMI: 22.000 Blood Pressure: 154/91 Laboratory Results (If applicable): n/a Discharge Instructions General Discharge Information Discharge Medications: Discharge Medications- (Dose, route, freq, indication): START taking these NEW Home Medications: Nicotine (Nicotine Dose: On the skin, DAILY for Qty: 14 Printed Patch) 14 MG/24 HOUR 14 Milligram tobacco cessation Refills: 0 PATCH.TD24 Apply 1 patch topically to upper arm every morning and remove before bedtime. Last Taken:10/10/16 Time:08:16 Gabapentin Dose: ORAL, EVERY SIX HOURS Qty: 56 Printed (Gabapentin) 300 MG 300 Milligram NEEDED as needed for Refills: 0 CAPSULE ANXIETY Take 1 capsule by mouth every 6 hours as needed. Bupropion HCl Dose: ORAL, TWICE DAILY for Qty: 28 Printed (Wellbutrin Sr) 200 1 Tablet depression Refills: 0 MG TABLET.ER Take 1 tablet by mouth twice daily. Last Taken:10/10/16 Time:07:44 Multivitamin (One Dose: ORAL, DAILY@0800 for Qty: 14 Daily Multivitamin) 1 Tablet VITAMIN SUPPORT Refills: 0 1 EACH TABLET Take 1 tablet by mouth daily. Purchase over the counter at pharmacy. CONTINUE taking these Home Medications: Oxycodone HCl Dose: 1 tab ORAL, TWICE DAILY for PAIN CONTROL (Oxycontin) 20 MG Last Taken:10/10/16 TAB.ER.12H Time:1106 Meloxicam (Meloxicam) Dose: 1 tab ORAL, DAILY, for PAIN CONTROL 7.5 MG TABLET Not given in Hospital Testosterone Dose: On the skin, TWICE (Testosterone) 10 MG (2% 1 Application DAILY for HRT ) GEL.INTEGRATED SPECIALIST Oxycodone HCl (Oxycodone Dose: ORAL, THREE TIMES A DAY HCl) 15 MG TABLET 1 Tablet NEEDED for pain Last Taken:10/10/16 Time:07:46 Multiple Neuroleptics: ([x]) Not Applicable OR Document below three failed attempts at monotherapy, or a plan to taper to monotherapy, or augmentation of Clozapine. () Patient's Diet: Regular. Patient's Activity: No restrictions. DC Disposition: Patient to return to home and self care. Recommendations: The patient was advised to please take his medications as prescribed. He was advised to attend all scheduled outpatient appointments (see below in referral section). He was advised that in the event of an emergency, to call 911/go to nearest emergency department. The patient verbalized understanding of all instructions. Referred To: [facility] [address] [address] *Intake at [facility] 10/13/16 12:45pm for the mental health track. OUTPATIENT PSYCHIATRY [address] [address] *Smoking Cessation Group 10/15/16 at 4pm. Copies To: Dr. Pete Zuniga; [facility]; Smoking Cessation Program
--- NOTE | 2016-10-10 11:56 | IP INCIDENTAL NOTE PSYCH ---
Incidental Note Notation: Note entered in error.
--- NOTE | 2016-10-10 12:02 | SOCIAL WORKER PROG NOTE PSYCH ---
Social Work Progress Note Progress Note Toan's Brother Jerri Juarez came in this morning for a family meeting. Zohreh Sykes APRN was also present for the meeting. Discussed concerns related to Toan's safety. Alonso didn't have any concerns. Alonso and Toan will be with eachother throughout the weekend. It sounds like they spend alot of time together usually. Toan stated he is remaining neutral between what is going on with his sister and Toan and that this does not impair his relationship with Toan in anyway. Talked about Intensive Outpatient Services and what that entails. Told him his appt. is scheduled for Thursday at 12:45pm. Toan asked if I could help him get the information for additional state benefits. I told him I could print him an application. There was mention during the meeting that [facility] may have taken off with Toan's pain medication. There was concern that he may need a new script. Zohreh Sykes APRN has informed him that he will need to follow up with his prescriber. Printed out a SNAP application for Toan and gave it to him before discharge. Brother Jerri will be here to pick him up at 1:30pm.
--- NOTE | 2016-10-10 12:27 | NUR ---
Pt is A&O X 3, compliant with medication and group therapies/activies. pt is being discharged today and will be attending [facility] Outpatient program as his Aftercare, discharge and follow-up program. Pt demonstrates good insight in his psychiatrist behaavior, acknowledges the receipt of the emergency phone numbers and to use them when feeling overwhelmed or out of control.patient denies thought of self-harm and to someone else.
[2016-10-10 12:30] VITALS: BP 154/91
== END 2016-10-10 13:52 | DRG 881 ==
LOC: ENRESERVDT → ENRESERVTM → ERH 12:00 → ENPENDDIS 10-06 11:21 → ERHI 10-06 11:21 → CP SOUTH 10-06 11:21
PROVIDERS: Physician Assistant Medical; ADMIT Psychiatry & Neurology Psychiatry
DX: F32.9 Major depressive disorder, single episode, unspecified (principal); M41.9 Scoliosis, unspecified; F41.9 Anxiety disorder, unspecified; G89.29 Other chronic pain
CPT/HCPCS: 80307; 93005; 93010; 96360; G0463; G0480; J3490; Q2036